=== PATIENT | male | born 1985 | race Caucasian/White ===

== ENCOUNTER 2024-05-11 17:42 | Inpatient (IN) | payer OTHER, SELFPAY ==
[2024-05-11] VITALS (11 sets, daily range): BP systolic 116–146; BP diastolic 82–105; BMI 19.9
--- NOTE | 2024-05-11 13:36 | CON.NEURO ---
Consultation
Order
Date of Consultation: 05/11/24
Requesting Provider: HUEY Perez
Reason for Consult: GBS
Neurology Consultation Note.
HPI: This is a 38-year-old RH man who presented to [facility] on 05/11/2024 with motor deficits. According to the patient he found himself on the floor dressed covered in vomit on 04/11/2024 at 2 am.
He recalls inability to move his legs s the left leg tingling. He called his mother on his cell phone that likely was with him to be assisted to bed. His mother noted new rash on his upper nose bridge that started red and spread to his forehead.
The patient does not recall having pizza that his mom witnessed him to have that the evening. The patient expressed fear of medical facilities, which delayed seeking care. On Saturday, while typing, his watch alerted him to a heart rate of 160 beats
per minute. His left leg improved to about 80%, but his right leg showed no improvement, with an inability to move his toes requiring a cane for ambulation. He took 32 mg of prednisone prescribed by his father on Saturday and Saturday however due to
no improvement of his right leg weakness he sought medical care.
No reports of headaches, associated tongue injury, urinary incontinence fever history of seizures.
The patient also reports developing swallowing issues with solids and hoarseness. He reportedly had a Hepatitis A and Prevnar vaccine on April 21.
ER VS: 129/94, 107, afebrile.
EKG: NSR, QTc Int : 416 ms
PDMP: Clonazepam 2 Mg�60 tablets filled in on 04/04/2024, 03/07/2024, Alprazolam 2 mg 90 tablets filled in on 04/04/2024, 03/07/2024, Lunesta 30 tabs filled in on 04/06/2024. 03/08/2024
Labs: WBCs�14.9, absolute lymphocyte count�0.9, glucose�124, calcium�10.4, normal sodium
PMH: HTN, vit B12, D deficiency, PTSD, SOCRATES, insomnia
PSH:chin implant, rhinoplasty
SH: lives with a partner; has 2 children ages 2 and 5; nonsmoker; no history of excessive ETOh use, former
FH: Not contributory
All: sulfas
ROS: Constitutional: Negative. Negative for chills, fever and unexpected weight change.
HENT: Positive for intermittent dysphagia to solid
Eyes: Negative. Negative for photophobia, pain and visual disturbance.
Respiratory: Negative for cough, choking and shortness of breath.
Cardiovascular: Negative for chest pain, palpitations and leg swelling.
Gastrointestinal: Negative for abdominal pain and vomiting.
Endocrine: Negative. Negative for cold intolerance.
Genitourinary: Negative for dysuria, flank pain and urgency.
Musculoskeletal: Negative for neck or back pain.
Skin: Positive for rash
Allergic/Immunologic: Negative. Negative for immunocompromised state.
Neurological: Positive for leg weakness and paresthesias
General: Well developed. In no acute distress.
Cardio: Regular rate and rhythm without murmur. Extremities are without cyanosis or edema.
Neuro:
Mental Status: Alert, oriented to person, place, and date. Normal attention and recall. Good fund of knowledge. Follows complex requests across the midline. Comprehension, naming, and repetition intact.
Cranial Nerves: Pupils are equally round and reactive to light. EOMs full. Visual barillas full to confrontation. No ptosis. No nystagmus. V1-V3 intact to light touch and pinprick bilaterally, symmetric. Face symmetric. Normal hearing AU. The
palate elevated well. SCMs and traps 5/5. Tongue midline. No dysarthria.
Motor: Normal bulk and tone. No pronator or arm drift. Strength 5/5 throughout except for right hip flexion�5-5, knee extension�4/5, right dorsiflexion�0/5, left dorsiflexion�4 out of 5. No clonus.
Reflexes: 2+ throughout the upper extremities and knees. 0/2 in AJs. Plantar responses flexor bilaterally. Negative Larry's bilaterally
Sensory: Absent vibration at the right toe, preserved proprioception bilateral at the toes
Coordination: No dysmetria or tremor.
Gait: deferred
Assessment and Plan:
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 I recommend:
II. SOCRATES
III. PTSD
-Admit to ICU given the autonomic dysfunction
-NIF Q1-2 H
-Start IVIG 0.4 g/kg/day for 5 days. Side effects include aseptic meningitis, rash, acute renal failure (mostly related to sucrose containing products), and hyperviscosity leading to stroke
-CSF(OP/CP, cell count, protein, glucose, GIOVANY)
-PVR
-MRI C/T spine with socrates
-GIOVANY, Lyme ab, HIV, HSV, VZV, vit B1, copper, ESR/CRP; spot urine for porphyria, JOSE, heavy metal screen
-Continue home dose of clonazepam, Lunesta, alprazolam
-NCS//EMG in 3 weeks
-Routine EEG
-DVT prophylaxis.
Case was discussed with patient's mother present at bedside.
I personally reviewed all radiology and labs along with past medical records pertinent to current medical problems. Total time spent in patient care is 60 minutes.
Thank you for allowing us to participate in the care of this patient. We will continue to follow. Please do not hesitate to contact us with any questions or concerns.
Subjective/Objective
Subjective Data
Date of Service: May 11, 2024
Objective Data
Vital Signs
Temp Pulse Resp BP Pulse Ox
37.0 C 107 16 129/94 98
05/11/24 11:54 05/11/24 11:54 05/11/24 11:54 05/11/24 11:54 05/11/24 13:15
Patient Allergies
Sulfa (Sulfonamide Antibiotics) Allergy (Mild, Verified 05/11/24 11:54)
Rash
Vital Signs and Labs
-
Vital Signs and Labs:
Vital Signs
Temp Pulse Resp BP Pulse Ox
37.0 C 90 14 129/89 97
05/11/24 11:54 05/11/24 15:15 05/11/24 15:15 05/11/24 15:00 05/11/24 14:15
Lab Results
05/11/24 13:23
05/11/24 13:23
Sodium 138 mmol/L (135-145) 05/11/24 13:23
Potassium 4.3 mmol/L (3.5-5.1) 05/11/24 13:23
BUN 24 mg/dl (9-20) H 05/11/24 13:23
Glucose 124 mg/dl (70-99) H 05/11/24 13:23
Calcium 10.4 mg/dl (8.4-10.2) H 05/11/24 13:23
Home Medications
-
Home Medications
alprazolam 2 mg tablet 6 mg PO HS 05/11/24
clonazepam 2 mg tablet 4 mg PO QPM 05/11/24
cyanocobalamin (vitamin B-12) 1,000 mcg/mL injection solution 1,000 mcg IM MONTHLY 05/11/24
dutasteride 0.5 mg capsule 0.5 mg PO DAILY 05/11/24
ergocalciferol (vitamin D2) 1,250 mcg (50,000 unit) capsule 2,500 mcg PO WEEKLY 05/11/24
eszopiclone 1 mg tablet 1 mg PO HSPRN PRN insomnia 05/11/24
finasteride 1 mg tablet (Propecia) 1 mg PO DAILY 05/11/24
gabapentin 600 mg tablet 600 mg PO TID 05/11/24
hydrochlorothiazide 12.5 mg capsule 12.5 mg PO QPM 05/11/24
methylprednisolone 32 mg tablet 32 mg PO .TAPER weakness, rash 05/11/24
minoxidil 2.5 mg tablet 2.5 mg PO QPM heart condition 05/11/24
[2024-05-11 13:41] LABS: % Basophils 0.1 % (0-2); % Immature Granulocytes 0.5 % (0-0.5); % Lymphocytes 5.7 % (20.5-51.1); % Monocytes 6.4 % (1.7-9.3); % Neutrophils 87.3 % (42.2-75.2); Absolute Immature Granulocytes 0.1 10^3/uL (0-0.05); Absolute Lymphocytes 0.9 10^3/uL (1.2-3.4); Hematocrit 35.8 % (39.0-52.0); Hemoglobin 12.2 g/dL (13.0-18.0); Mean Corp Hgb Conc. 34.1 g/dL (33.0-37.0); Mean Platelet Volume 8.5 fL (7.4-10.4); Nucleated Red Blood Cells % 0 % (-); Platelet Count 331 10^3/uL (130-400); Red Blood Cell Count 4.07 10^6/uL (4.70-6.10); Red Cell Dist. Width 12.6 % (11.5-14.5); White Blood Cell Count 14.9 10^3/uL (4.8-10.8)
[2024-05-11 13:53] LABS: ALT (SGPT) 21 U/L (0-50); AST (SGOT) 39 U/L (17-59); Albumin 4.5 g/dl (3.5-5.0); Alkaline Phosphatase 59 U/L (38-126); Blood Urea Nitrogen 24 mg/dl (9-20); Calcium 10.4 mg/dl (8.4-10.2); Carbon Dioxide 27 mmol/L (22-30); Chloride 101 mmol/L (98-107); Estimated Creatinine Clearance > 125 ml/min; Glucose 124 mg/dl (70-99); Potassium 4.3 mmol/L (3.5-5.1); Sodium 138 mmol/L (135-145); Total Bilirubin 0.5 mg/dl (0.2-1.3); Total Protein 7.4 g/dl (6.3-8.2); eGFR > 60.00
--- NOTE | 2024-05-11 14:59 | ED.GENMED ---
History of Present Illness
General
Chief Complaint: Weakness
Source: patient
Exam Limitations: none
Time Seen by Provider: 05/11/24 12:20
History of Present Illness
History of Present Illness:
38-year-old male with history of anxiety and hypertension presents with main complaint of weakness and paralysis to the right lower leg. 3 days ago, he received influenza vaccine. That evening he finished eating dinner and had what sounds like a
syncopal episode. He woke up on the floor covered in vomit. He also realized his legs were not functioning. He had to crawl to the to ambulate. Since then the function in his left leg has returned but he still notes weakness and numbness to the
right lower leg. He also notes numbness to both small fingers. No headache. No chest pain. No shortness of breath. No other at this time
Phy Exam
Physical Exam
Physical Exam:
General: Well-appearing male no acute respiratory distress
HEENT: Normocephalic atraumatic neck is supple tongue and uvula midline no trismus or drooling
Heart: Regular rate and rhythm no murmurs
Lungs: Clear no wheeze
Ext: No cyanosis
Neuro: alert and oriented. No facial asymmetry. Weakness noted to right lower extremity distal to the knee unable to dorsiflex or plantarflex the right foot. Bilateral patellar reflexes are 2+. Bilateral Achilles reflexes are diminished. He has
slightly decreased sensation to the right foot compared to the left no drift on exam
Vascular: 2+ dorsalis pedis pulse bilateral feet
Course
Orders/Labs/Results
Orders:
Orders
05/11/24 13:23
Complete Blood Count/With Diff Urgent
Comprehensive Metabolic Panel Urgent
05/11/24 14:03
NEUROLOGY CONSULT Urgent
Consulting Provider: Dana Acosta
Was physician already notified: Yes
05/11/24 15:19
Electrocardiogram (*1) Urgent
Reason for Study: Syncope
EKG- Treatment ONCE
Abnormal Lab Results
05/11/24
13:23
WBC 14.9 H 10^3/uL
(4.8-10.8)
RBC 4.07 L 10^6/uL
(4.70-6.10)
Hgb 12.2 L g/dL
(13.0-18.0)
Hct 35.8 L %
(39.0-52.0)
Abs Immat Gran (auto) 0.1 H 10^3/uL
(0-0.05)
Absolute Neuts (auto) 13.0 H 10^3/uL
(1.4-6.5)
Absolute Lymphs (auto) 0.9 L 10^3/uL
(1.2-3.4)
Absolute Monos (auto) 1.0 H 10^3/uL
(0.1-0.6)
Neutrophils % 87.3 H %
(42.2-75.2)
Lymphocytes % 5.7 L %
(20.5-51.1)
BUN 24 H mg/dl
(9-20)
Glucose 124 H mg/dl
(70-99)
Calcium 10.4 H mg/dl
(8.4-10.2)
05/11/24 13:23
05/11/24 13:23
Vital Signs
Initial and Last Documented VS:
Initial Vital Signs
Temp Pulse Resp BP Pulse Ox
98.6 F 107 16 129/94 98
05/11/24 11:54 05/11/24 11:54 05/11/24 11:54 05/11/24 11:54 05/11/24 11:54
Last Documented Vital Signs
Temp Pulse Resp BP Pulse Ox
98.6 F 90 14 129/89 97
05/11/24 11:54 05/11/24 15:15 05/11/24 15:15 05/11/24 15:00 05/11/24 14:15
MDM/Problems Addressed
Differential Diagnosis Includes:
Patient presents with concern for weakness to the lower extremities right greater than left shortly following influenza vaccine. Differential could include adverse reaction to vaccine versus Guillain-Corral� versus foot drop
Labs ordered. Consulted neurology
*Critical Care Note
Total Time (30-74mins, 75-104mins- exclusive of procedures): Not Applicable
Update Note
Update Note:
Neurology saw patient. Agrees patient needs to be admitted for potential Guillain-Corral� syndrome. Neurology to place orders for treatment and further studies. Hospitalist made aware.
ED Attending Note
-
Portions of this chart may have been created with voice recognition software.� Occasional wrong word or��sound alike� substitutions may have occurred due to the inherent limitations of voice recognition software.
Discharge Plan
Departure
Patient Disposition: Admit
Date of Disposition: 05/11/24
Time of Disposition: 15:21
Presentation/result/management discussed w/ accepting MD/DO: Hospitalist
Discharge Problem:
Paralysis of right lower extremity
Prescriptions:
No Action
gabapentin 600 mg tablet
600 mg PO TID
methylprednisolone 32 mg Tablet
32 mg PO .TAPER
minoxidil 2.5 mg tablet
2.5 mg PO QPM
cyanocobalamin (vitamin B-12) 1,000 mcg/mL solution
1,000 mcg IM MONTHLY
clonazepam 2 mg tablet
4 mg PO QPM
Patient Comments:
05/11/24: per patient, takes full daily dose in the evening
hydrochlorothiazide 12.5 mg capsule
12.5 mg PO QPM
alprazolam 2 mg tablet
6 mg PO HS
Patient Comments:
05/11/24: per patient, takes full daily dose at bedtime
ergocalciferol (vitamin D2) 1,250 mcg (50,000 unit) capsule
2,500 mcg PO WEEKLY
finasteride [Propecia] 1 mg tablet
1 mg PO DAILY
dutasteride 0.5 mg capsule
0.5 mg PO DAILY
eszopiclone 1 mg tablet
1 mg PO HSPRN PRN (Reason: insomnia)
Referrals:
Alayna Garcia MD [Family Provider] -
Interventions
Interventions:
*Risk Screen - Suicide Last Done: 05/11/24 11:54
*General Assessment Last Done: 05/11/24 13:15
*Neglect/Abuse Screening Last Done: 05/11/24 11:54
*ED COVID-19 Vaccine History Last Done: 05/11/24 13:15
ED- Cardiac Assessment Last Done: 05/11/24 13:15
ED- Neurological Assessment Last Done: 05/11/24 13:15
ED- Pulmonary Assessment Last Done: 05/11/24 13:15
Discharge Date and Time
Print Language: YAKUT
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
[2024-05-11 16:59] LABS: INR 1.06; PT 14.1 Sec (11.4-14.6)
[2024-05-11] MEDS: NSS 1000 IV (17:36)
[2024-05-11 17:40] LABS: Erythrocyte Sed Rate 27 mm/hour (0-20)
[2024-05-11 17:53] LABS: Vitamin B12 591 pg/ml (239-931)
[2024-05-11 18:06] LABS: Free T4 0.82 ng/dl (0.78-2.19)
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
[2024-05-11 18:28] LABS: Hepatitis B Surface Antigen Negative (Negative)
[2024-05-11 18:45] LABS: Hepatitis C Antibody Negative (Negative)
[2024-05-11 19:41] LABS: Hepatitis B Surface Antibody Positive
[2024-05-11 20:30] LABS: Hepatitis B Core Ab, IgM Negative (Negative)
--- NOTE | 2024-05-11 22:10 | PTCARENOTE ---
rec`d pt at 2210 from ED AAOx3. complains of rt lower leg-'can`t feel it.' can wiggle his toes. +pulses. left leg is normal. arms are normal. RA. POX 94%. SR on monitor. urinal. rt and left AC 20s flushed and patent. call montalvo in reach, safe
environment maintained.
[2024-05-11 22:38] LABS: Magnesium 2.3 mg/dl (1.6-2.3); Phosphorus 3.1 mg/dl (2.5-4.5)
[2024-05-11] MEDS: HEPARIN 5000 UNITS SC (23:09)
[2024-05-11] MEDS: NEURONTIN 600 MG PO (23:10)
[2024-05-11] MEDS: ORETIC 12.5 MG PO (23:10)
[2024-05-11] MEDS: XANAX 6 MG PO (23:29)
[2024-05-12] VITALS (24 sets, daily range): BP systolic 76–155; BP diastolic 62–107; PULSE 93; O2SAT 95; BMI 19.5
[2024-05-12] MEDS: TYLENOL 650 MG PO (00:24)
[2024-05-12] MEDS: BENADRYL 25 MG IV (00:24)
[2024-05-12] MEDS: GAMMAGARD 300 IV (00:25)
[2024-05-12] MEDS: PEPCID 20 MG PO ×2 (00:47→20:59)
[2024-05-12 03:44] LABS: % Basophils 0.4 % (0-2); % Immature Granulocytes 0.6 % (0-0.5); % Lymphocytes 17.8 % (20.5-51.1); % Monocytes 2.7 % (1.7-9.3); % Neutrophils 77.5 % (42.2-75.2); Absolute Eosinophils 0.1 10^3/uL (0-0.7); Absolute Immature Granulocytes 0.1 10^3/uL (0-0.05); Absolute Monocytes 0.3 10^3/uL (0.1-0.6); Absolute Neutrophils 8.8 10^3/uL (1.4-6.5); Hematocrit 32.2 % (39.0-52.0); Hemoglobin 11.2 g/dL (13.0-18.0); Mean Corp Hgb Conc. 34.8 g/dL (33.0-37.0); Mean Corpuscular Hgb 30.1 pg (27.0-31.0); Mean Corpuscular Volume 86.6 fL (80.0-94.0); Mean Platelet Volume 8.6 fL (7.4-10.4); Nucleated Red Blood Cells % 0 % (-); Platelet Count 299 10^3/uL (130-400); Red Blood Cell Count 3.72 10^6/uL (4.70-6.10); Red Cell Dist. Width 12.5 % (11.5-14.5); White Blood Cell Count 11.4 10^3/uL (4.8-10.8)
[2024-05-12 04:29] LABS: ALT (SGPT) 22 U/L (0-50); AST (SGOT) 38 U/L (17-59); Albumin 3.8 g/dl (3.5-5.0); Alkaline Phosphatase 52 U/L (38-126); Blood Urea Nitrogen 25 mg/dl (9-20); Calcium 9.5 mg/dl (8.4-10.2); Carbon Dioxide 25 mmol/L (22-30); Chloride 104 mmol/L (98-107); Estimated Creatinine Clearance > 125 ml/min; Glucose 121 mg/dl (70-99); Potassium 4.3 mmol/L (3.5-5.1); Sodium 139 mmol/L (135-145); Total Bilirubin 0.5 mg/dl (0.2-1.3); Total Protein 6.7 g/dl (6.3-8.2); eGFR > 60.00
[2024-05-12 04:36] LABS: APTT 27.7 Sec (23.4-35.0)
--- NOTE | 2024-05-12 05:09 | PTCARENOTE ---
pt admits to taking his mom`s prescribed promethazine 'every once in awhile'. admits to taking it before his at home syncopal episode on Saturday.
--- NOTE | 2024-05-12 07:08 | W.PN.HOSP.TC ---
Today's Communication/Plan
-
Consult psych
MRI lumbar with and without contrast
Awaiting lab results
Assessment / Plan
Assessment / Plan
MRI brain: On sagittal T1-weighted images, 4 mm rounded prominence of increased T1-weighted signal in the region of the infundibulum with loss of degenerative visualization of the posterior pituitary gland within the sella. This could represent
ectopic posterior pituitary gland, versus slight prominence of the infundibulum as normal variation. As warranted, consider further evaluation with additional thin section imaging through the pituitary gland. No other significant MR finding within
the brain.
MRI T-spine: Within the visualized lungs, patchy areas of parenchymal opacity/signal bilaterally, there appears to be greater involvement of the right lung when compared to the left. Findings raise suspicion for pneumonia, although chronic
parenchymal disease is also possible. Consider further evaluation with chest radiograph initially. Normal morphology and signal intensity of the cervical and thoracic spinal cord. Conus medullaris appears within normal limits. No evidence for
abnormal enhancement of the spinal cord. No evidence for abnormal enhancement of the visualized nerve roots within the superior aspect of the cauda equina.
#B/L LE weakness, R>L:
-concern for GBS
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 Function returned to left side, has had persistent weakness to RLE (has been using cane)
-took prednisone 32mg(from father)
-recent vaccination history noted in H&P, reportedly he received Prevnar and COVID-vaccine in April 2024 and flu vaccine 3 days prior to coming to the
-MRI brain and T-spine above, unremarkable for acute neurological findings
-MRI C-spine pending
-ESR 27, CRP 146
-neuro following
-cont IVIG x 5 days
-IR c/s placed for LP (routine fluid studies as well as GIOVANY)
-check EEG
-check serum GIOVANY, Lyme ab, HIV, HSV, VZV, Vit B1, copper, ESR/CRP; spot urine for porphyria, JOSE, heavy metal screen
-NCS/EMG in 3 weeks
-MRI lumbar with and without contrast
-Transferred down to IMU
# leukocytosis
-Trending down
# Rash on face; unclear
-Consult dermatology
#Essential hypertension
-Cont HCTZ/minoxidil
#PTSD/Anxiety
-cont home Xanax/Klonopin. c/s psych.
#BPH
-cont Proscar
#B12 deficiency
-B12 normal
Full code
DVT ppx: heparin
Anticipated Discharge: Within 24 hours
Subjective/Interval History
-
Date of Service: May 12, 2024
AFVSS. States he is hungry
Objective Data
-
Labs:
Laboratory Results
05/12/24 05/12/24 05/12/24
03:19 04:07 06:00
WBC 11.4 H
Hgb 11.2 L
Hct 32.2 L
Plt Count 299
APTT Cancelled 27.7
Sodium 139 Cancelled
Potassium 4.3 Cancelled
Chloride 104 Cancelled
Carbon Dioxide 25 Cancelled
BUN 25 H Cancelled
Creatinine 0.8 Cancelled
Glucose 121 H Cancelled
Calcium 9.5 Cancelled
Total Bilirubin 0.5 Cancelled
AST 38 Cancelled
ALT 22 Cancelled
Alkaline Phosphatase 52 Cancelled
Vital Signs:
Vital Signs
Temp Pulse Resp BP Pulse Ox
97.5 F 80 12 112/87 100
05/12/24 02:00 05/12/24 06:30 05/12/24 06:30 05/12/24 06:00 05/12/24 06:30
I&O
05/11/24 05/12/24 05/13/24
06:59 06:59 06:59
Intake Total 607.8 / 607.8
Balance 607.8 / 607.8
Review of Systems
-
History Source: Patient
Constitutional: Reports Weight Loss
EENT: Reports No Symptoms Reported
Respiratory: Reports No Symptoms
Cardiac: Reports No Symptoms
Abdomen/GI: Reports No Symptoms
Musculoskeletal: Reports Muscle Weakness
Neuro: Reports Weakness
Physical Exam
-
General: Well Nourished and No Apparent Distress
HEENT: Normocephalic and Atraumatic
Respiratory: Clear to Auscultation
Cardiac: Regular Rhythm
GI: Soft, Nontender and Nondistended
Skin: Warm, Dry and Rash (Light brown nonitchy flat near the right eyebrow lower forehead)
Neuro: Awake, Alert, Oriented and Other (right dorsiflexion-4/5, left dorsiflexion-4 /5, right planter flexion 0/5, left planter flexion 5/5, decreased sensation to light touch in right lower lateral leg)
Psych: Calm
Data Reviewed
-
Diagnostic Radiology: Report Reviewed by me
MRI: Report Reviewed by me
Labs: Labs Reviewed by me, Discussed with Physician and Discussed with Patient
[2024-05-12] MEDS: NSS IV (07:47)
[2024-05-12] MEDS: HEPARIN 5000 UNITS SC ×2 (08:11→21:09)
[2024-05-12] MEDS: NEURONTIN PO ×3 (08:11→17:27)
--- NOTE | 2024-05-12 09:14 | PTCARENOTE ---
Received pt awake and alert.Speech is appropriate.+PABON.pt c/o numbness and weakness of right lower extremity.Pt assisted to bathroom with 1 person minimal assist.Pt using a single point cane to ambulate.After voiding pt noted to lift right leg/bend
to flush the toilet using his foot.Denies pain.SR noted.IVF infusing.Lungs CTA.IS 1750 ml.Occasional non productive cough.POX 97% on RA.No SOB or use of accessories noted.Pt requesting Red Bull for the caffeine.No BM.Voided large amount yellow
urine.Plan of care discussed with pt.
[2024-05-12] MEDS: NSS 1000 IV ×2 (09:30→21:39)
--- NOTE | 2024-05-12 09:33 | W.PN.NEURO.1 ---
Today's Communication / Plan
-
.
Subjective/Objective
Subjective Data
Date of Service: May 12, 2024
Neurology Follow up Note.
24h events: hemodynamically stable, afebrile. LP-pending.
Mr. Somers endorses intermittent dyspnea at rest. No dysarthria, diplopia. He admits to improvement of the right leg numbness since yesterday however distal right leg weakness persists. No reports of radicular back pain, change in sensation or
strength in the arms.
Mr. Somers reports 15 pounds of unintentional weight loss in the last 2 weeks that believes is secondary to poor appetite. He is on gabapentin as a part of depression management
T spine MRI w/wo karolyn(05/11/2024) no evidence of spinal cord abnormalities, patchy areas of pulmonary parenchymal opacity/signal bilaterally, there appears to be greater involvement of the right lung when compared to the left.
Brain MRI w/wo karolyn(05/11/2024) ectopic posterior pituitary gland vs prominence of the infundibulum as normal variant.
Labs: CRP�146.80.
PMH: HTN, vit B12, D deficiency, PTSD, KAROLYN, insomnia
PSH: chin implant, rhinoplasty
SH: lives with a partner; has 2 adopted children ages 2 and 5; nonsmoker; no history of excessive ETOh use, former
FH: Not contributory
All: sulfas
ROS: Constitutional: Negative. Negative for chills, fever and unexpected weight change.
HENT: Positive for intermittent dysphagia to solid
Eyes: Negative. Negative for photophobia, pain and visual disturbance.
Respiratory: Negative for cough, choking and shortness of breath.
Cardiovascular: Negative for chest pain, palpitations and leg swelling.
Gastrointestinal: Negative for abdominal pain and vomiting.
Endocrine: Negative. Negative for cold intolerance.
Genitourinary: Negative for dysuria, flank pain and urgency.
Musculoskeletal: Negative for neck or back pain.
Skin: Positive for rash
Allergic/Immunologic: Negative. Negative for immunocompromised state.
Neurological: Positive for leg weakness and paresthesias
General: Well developed. In no acute distress.
Cardio: Regular rate and rhythm without murmur. Extremities are without cyanosis or edema.
Neuro:
Mental Status: Alert, oriented to person, place, and date. Normal attention and recall. Good fund of knowledge. Follows complex requests across the midline. Comprehension, naming, and repetition intact.
Cranial Nerves: Pupils are equally round and reactive to light. EOMs full. Visual barillas full to confrontation. No ptosis. No nystagmus. V1-V3 intact to light touch and pinprick bilaterally, symmetric. Face symmetric. Normal hearing AU. The
palate elevated well. SCMs and traps 5/5. Tongue midline. No dysarthria.
Motor: Normal bulk and tone. No pronator or arm drift. Strength 5/5 throughout except for right hip flexion�5-/5, knee extension�4/5, right dorsiflexion�0/5, right plantarflexion�4 out of 5, right foot eversion and inversion�2 out of 5 left
dorsiflexion 5/0 out of 5. No clonus.
Reflexes: 2+ throughout the upper extremities and knees. 0/2 in AJs. Plantar responses flexor bilaterally. Negative Larry's bilaterally
Sensory: Reduced light touch in the right L2�S1 distribution.
Coordination: No dysmetria or tremor.
Gait: deferred
Assessment and Plan:
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
II. Elevated CRP
III. Syncope versus seizure
IV. Status post unwitnessed fall
V. Rash
-Continue telemetry
-NIF Q1-2 H
-Continue IVIG 0.4 g/kg/day for 5 days.
-LP with sedation
-PVR
-MRI C/LS spine with karolyn
-Will follow-up requested serological and CSF studies
-Continue home dose of clonazepam, Lunesta, alprazolam, gabapentin
-Skin biopsy
-NCS//EMG in 3 weeks
-Routine EEG
-DVT prophylaxis.
I personally reviewed all radiology and labs along with past medical records pertinent to current medical problems. Total time spent in patient care is 40 minutes.
Thank you for allowing us to participate in the care of this patient. We will continue to follow. Please do not hesitate to contact us with any questions or concerns.
Objective Data
Vital Signs
Temp Pulse Resp BP Pulse Ox
36.8 C 85 9 130/102 97
05/12/24 08:00 05/12/24 09:04 05/12/24 08:45 05/12/24 08:00 05/12/24 09:13
Lab Results
05/12/24 03:19
05/12/24 06:00
PT 14.1 Sec (11.4-14.6) 05/11/24 16:29
INR 1.06 05/11/24 16:29
APTT 27.7 Sec (23.4-35.0) 05/12/24 04:07
Sodium Cancelled 05/12/24 06:00
Potassium Cancelled 05/12/24 06:00
BUN Cancelled 05/12/24 06:00
Glucose Cancelled 05/12/24 06:00
Calcium Cancelled 05/12/24 06:00
Phosphorus 3.1 mg/dl (2.5-4.5) 05/11/24 13:23
Vitamin B12 591 pg/ml (239-931) 05/11/24 16:29
Patient Allergies
Sulfa (Sulfonamide Antibiotics) Allergy (Mild, Verified 05/11/24 11:54)
Rash
Vital Signs and Labs
-
Vital Signs and Labs:
Vital Signs
Temp Pulse Resp BP Pulse Ox
36.8 C 85 9 130/102 97
05/12/24 08:00 05/12/24 09:04 05/12/24 08:45 05/12/24 08:00 05/12/24 09:13
Lab Results
05/12/24 03:19
05/12/24 06:00
PT 14.1 Sec (11.4-14.6) 05/11/24 16:29
INR 1.06 05/11/24 16:29
APTT 27.7 Sec (23.4-35.0) 05/12/24 04:07
Sodium Cancelled 05/12/24 06:00
Potassium Cancelled 05/12/24 06:00
BUN Cancelled 05/12/24 06:00
Glucose Cancelled 05/12/24 06:00
Calcium Cancelled 05/12/24 06:00
Phosphorus 3.1 mg/dl (2.5-4.5) 05/11/24 13:23
Vitamin B12 591 pg/ml (954-931) 05/11/24 16:29
Medications
-
Medications:
Generic Name Dose Route Start Last Admin
Trade Name Freq PRN Reason Stop Dose Admin
Acetaminophen 650 mg 05/11/24 22:03
Acetaminophen 325 Mg Tablet PO 06/08/24 22:02
Q4HPRN PRN
mild pain/VILLAGRAN/temp> 100.4F
Acetaminophen 650 mg 05/12/24 00:00 05/12/24 00:24
Acetaminophen 325 Mg Tablet PO 05/16/24 00:01 650 mg
DAILY@0000 JANET Administration
Alprazolam 6 mg 05/11/24 23:00 05/11/24 23:29
Alprazolam 1 Mg Tablet PO 06/08/24 22:59 6 mg
HS JANET Administration
Clonazepam 4 mg 05/12/24 18:00
Clonazepam 1 Mg Tablet PO 06/09/24 17:59
QPM JANET
Diphenhydramine HCl 25 mg 05/12/24 00:00 05/12/24 00:24
Diphenhydramine 50 Mg/Ml 1 Ml Vial IV 05/16/24 00:01 25 mg
DAILY@0000 JANET Administration
Gabapentin 600 mg 05/11/24 23:00 05/11/24 23:10
Gabapentin 300 Mg Capsule PO 06/08/24 22:59 600 mg
TID JANET Administration
Heparin Sodium 5,000 units 05/11/24 22:03 05/12/24 08:11
Heparin 5,000 Units/Ml 1 Ml Vial SC 06/08/24 22:02 5,000 units
Q12 JANET Administration
Hydrochlorothiazide 12.5 mg 05/11/24 22:15 05/11/24 23:10
Hydrochlorothiazide 12.5 Mg Tablet PO 06/08/24 22:14 12.5 mg
QPM JANET Administration
Sodium Chloride 1,000 mls @ 100 mls/hr 05/11/24 16:15 05/12/24 09:30
Nss IV 1,000 mls
.Q10H JANET Administration
Immune Globulin 30 grams in 300 mls @ 0 mls/hr 05/12/24 00:00 05/12/24 00:25
Gammagard IV 05/16/24 00:01 300 mls
DAILY@0000 JANET Administration
Protocol
Per Protocol
Minoxidil 2.5 mg 05/11/24 22:03 05/11/24 23:16
Minoxidil 2.5 Mg Tablet PO 06/08/24 22:02 Not Given
QPM JANET
Finasteride [ 0 mg 05/12/24 08:00
Propecia] 1 Mg PO 06/09/24 07:59
Tablet; 1 Tab Po DAILY JANET
Daily
Sodium Chloride 0 flush 05/11/24 22:00
Sodium Chloride 0.9% (Flush) Syringe IV 06/08/24 21:59
PER PROTOCOL JANET
Zolpidem Tartrate 5 mg 05/11/24 22:13
Zolpidem Tartrate 5 Mg Tablet PO 06/08/24 22:12
HSPRN PRN
insomnia
Home Medications
-
Home Medications
alprazolam 2 mg tablet 6 mg PO HS 05/11/24
clonazepam 2 mg tablet 4 mg PO QPM 05/11/24
cyanocobalamin (vitamin B-12) 1,000 mcg/mL injection solution 1,000 mcg IM MONTHLY 05/11/24
dutasteride 0.5 mg capsule 0.5 mg PO DAILY 05/11/24
ergocalciferol (vitamin D2) 1,250 mcg (50,000 unit) capsule 2,500 mcg PO WEEKLY 05/11/24
eszopiclone 1 mg tablet 1 mg PO HSPRN PRN insomnia 05/11/24
finasteride 1 mg tablet (Propecia) 1 mg PO DAILY 05/11/24
gabapentin 600 mg tablet 600 mg PO TID 05/11/24
hydrochlorothiazide 12.5 mg capsule 12.5 mg PO QPM 05/11/24
methylprednisolone 32 mg tablet 32 mg PO .TAPER weakness, rash 05/11/24
minoxidil 2.5 mg tablet 2.5 mg PO QPM 05/11/24
--- NOTE | 2024-05-12 09:38 | W.PN.UPDATE ---
Update Note
Progress Note Update
I saw and evaluated the patient. I reviewed the resident�s note and agree with findings and plan as documented in the resident�s note.
No new complaints.
Gen: NAD, AAOx3.
Eyes: EOMI, PERRLA, no scleral icterus.
Neck: supple.
CV: RRR, +S1/S2, no m/r/g.
Resp: CTAB, no rales, wheezes, or rhonchi.
Abd: +BS, soft, NT, ND
Skin: No rashes.
Neuro: CN 2-12 intact, RLE 2/, LLE 4/5
Psych: Normal mood and affect.
MRI brain: On sagittal T1-weighted images, 4 mm rounded prominence of increased T1-weighted signal in the region of the infundibulum with loss of degenerative visualization of the posterior pituitary gland within the sella. This could represent
ectopic posterior pituitary gland, versus slight prominence of the infundibulum as normal variation. As warranted, consider further evaluation with additional thin section imaging through the pituitary gland. No other significant MR finding within
the brain.
MRI T-spine: Within the visualized lungs, patchy areas of parenchymal opacity/signal bilaterally, there appears to be greater involvement of the right lung when compared to the left. Findings raise suspicion for pneumonia, although chronic
parenchymal disease is also possible. Consider further evaluation with chest radiograph initially. Normal morphology and signal intensity of the cervical and thoracic spinal cord. Conus medullaris appears within normal limits. No evidence for
abnormal enhancement of the spinal cord. No evidence for abnormal enhancement of the visualized nerve roots within the superior aspect of the cauda equina.
B/L LE weakness, R>L:
-concern for GBS
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 Function returned to left side, has had persistent weakness to RLE (has been using cane)
-took prednisone 32mg
-recent vaccination history noted in H&P, most recent vaccines 04/21/24
-MRI brain and T-spine above, unremarkable for acute neurological findings
-MRI C-spine pending
-ESR 27, CRP 146
-neuro following
-cont IVIG x 5 days
-IR c/s placed for LP (routine fluid studies as well as GIOVANY)
-check EEG
-check serum GIOVANY, Lyme ab, HIV, HSV, VZV, Vit B1, copper, ESR/CRP; spot urine for porphyria, JOSE, heavy metal screen
-NCS/EMG in 3 weeks
Other problems:
Essential HTN: cont HCTZ/minoxidil
PTSD/Anxiety: cont home Xanax/Klonopin. c/s psych.
BPH: cont Proscar
B12 deficiency: B12 normal
FULL/heparin
Total time spent on today's encounter was 50 minutes which included time spent in counseling the patient/family regarding diagnosis and treatment plan as listed above, goals of care, and symptom management. Case was discussed with nursing staff,
specialists, and care coordinators/case management. All labs and imaging personally reviewed by me. Remainder the time spent in detailed review of previous records, lab data, imaging, and other medical provider documentation.
--- NOTE | 2024-05-12 12:11 | PTCARENOTE ---
Addendum entered by Vanesa Díaz RN 05/12/24 12:13:
Pt has refused morning dose of Neurontin and Propecia dose at this time.
Original Note:
Pt assessed.No change in assessment noted.Pt noted to be standing at bedside independently.Pt's mother at bedside.
--- NOTE | 2024-05-12 12:48 | PTCARENOTE ---
Pt made aware that he is NPO for LP with sedation as per SUNITA GARCIA.
--- NOTE | 2024-05-12 14:22 | CM ---
CM following re: discharge planning.
Reviewed pt's chart, met with pt and pt's mother at bedside.
Pt is a 38 year old male, admitted with primary dx of B/L LE weakness, concern for GBS.
Pt reports he lives with mother 2SH, 2 steps to enter, has a sister in [place] and brother in [place]. Pt reports he ambulates with a cane.
PT and OT will evaluate the pt to determine a level of care at discharge.
PCP: Alayna Garcia
Pharmacy: [facility].
D/C plan: most likely home with anticipated no needs vs outpatient therapy if recommended by PT/OT
CM will follow with discharge plan updates as hospitalization progresses
[2024-05-12 14:27] LABS: Syphilis/T. pallidum Ab Reflex Negative (Negative)
--- NOTE | 2024-05-12 14:56 | PTCARENOTE ---
Pt stated that he accidentally drank a 1/2 bottle of Red Bull despite being told he was NPO.IRKIMO RN made aware.LP on hold until tomorrow as JIMENEZ RN will make JIMENEZ GARCIA aware.
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
--- NOTE | 2024-05-12 15:21 | PTCARENOTE ---
Pt transported to MRI via stretcher.
[2024-05-12 15:22] LABS: HIV Combo Negative (Negative)
--- NOTE | 2024-05-12 16:41 | CON.INTV ---
Consultation
Consultation Request
Date/Time Consultation Requested: 05/13/2023
Date/Time Consultation Performed: 05/13/2023: 10 am
Reason for Consultation: Concern for progressive neurological weakness
Medical History
-
Chief Complaint: Weakness, legs
History of Present Illness:
HPI: This is a 38-year-old RH man who presented to [facility] ER on 05/11/2024 with motor deficits. According to the patient he found himself on the floor dressed covered in vomit on 04/11/2024 at 2 am.
He recalls inability to move his lower extremities with tingling of left leg. Patient also reports an episode which appears to be syncope. Patient reports having been vaccinated for influenza about 3 days ago and also reports having taken
prednisone given by a family member without improvement in his symptoms.
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 Patient was subsequently admitted to ICU for initiation of IVIG therapy and consultation to
intensive care service was requested for concern of progressive neurological deterioration.
PMH: HTN, vit B12, D deficiency, PTSD, SOCRATES, insomnia
PSH:chin implant, rhinoplasty
SH: lives with a partner; has 2 children ages 2 and 5; nonsmoker; no history of excessive ETOh use, former
FH: Not contributory
All: sulfas
MRI brain: On sagittal T1-weighted images, 4 mm rounded prominence of increased T1-weighted signal in the region of the infundibulum with loss of degenerative visualization of the posterior pituitary gland within the sella. This could represent
ectopic posterior pituitary gland, versus slight prominence of the infundibulum as normal variation. As warranted, consider further evaluation with additional thin section imaging through the pituitary gland. No other significant MR finding within
the brain.
MRI T-spine: Within the visualized lungs, patchy areas of parenchymal opacity/signal bilaterally, there appears to be greater involvement of the right lung when compared to the left. Findings raise suspicion for pneumonia, although chronic
parenchymal disease is also possible. Consider further evaluation with chest radiograph initially. Normal morphology and signal intensity of the cervical and thoracic spinal cord. Conus medullaris appears within normal limits. No evidence for
abnormal enhancement of the spinal cord. No evidence for abnormal enhancement of the visualized nerve roots within the superior aspect of the cauda equina.
Social History
Tobacco: Non-smoker
Family History
Family History: Reviewed & Not Pertinent
Allergies / Home Medications
Allergies
Allergy/AdvReac Type Severity Reaction Status Date / Time
Sulfa (Sulfonamide Allergy Mild Rash Verified 05/11/24 11:54
Antibiotics)
Home Medications
�Medication �Instructions �Recorded �Confirmed �Last Taken �Type
alprazolam 2 mg tablet 6 mg PO HS 05/11/24 05/11/24 Unknown History
clonazepam 2 mg tablet 4 mg PO QPM 05/11/24 05/11/24 Unknown History
cyanocobalamin (vitamin B-12) 1,000 mcg IM MONTHLY 05/11/24 05/11/24 Unknown History
1,000 mcg/mL injection solution
dutasteride 0.5 mg capsule 0.5 mg PO DAILY 05/11/24 05/11/24 Unknown History
ergocalciferol (vitamin D2) 1,250 2,500 mcg PO WEEKLY 05/11/24 05/11/24 Unknown History
mcg (50,000 unit) capsule
eszopiclone 1 mg tablet 1 mg PO HSPRN PRN insomnia 05/11/24 05/11/24 Unknown History
finasteride 1 mg tablet (Propecia) 1 mg PO DAILY 05/11/24 05/11/24 Unknown History
gabapentin 600 mg tablet 600 mg PO TID 05/11/24 05/11/24 Unknown History
hydrochlorothiazide 12.5 mg capsule 12.5 mg PO QPM 05/11/24 05/11/24 Unknown History
methylprednisolone 32 mg tablet 32 mg PO .TAPER weakness, rash 05/11/24 05/11/24 05/11/24 02:00 History
16 mg
minoxidil 2.5 mg tablet 2.5 mg PO QPM 05/11/24 05/11/24 Unknown History
Review of Systems
-
Hematologic/Lymphatic: Other (Negative except as stated above in history of present illness.)
Vitals / Labs / Diagnostic Testing
Vital Signs
Temp Pulse Resp BP Pulse Ox
98.4 F 90 13 150/72 98
05/12/24 15:29 05/12/24 13:15 05/12/24 13:15 05/12/24 13:00 05/12/24 12:45
Lab Data
05/12/24 03:19
05/12/24 06:00
Laboratory Results
05/11/24 05/12/24 05/12/24
16:29 03:19 04:07
PT 14.1
INR 1.06
APTT Cancelled 27.7
Diagnostic Testing:
Physical Exam
-
HEENT: Normocephalic
Cardiovascular: Regular Rhythm
Respiratory: Clear and Non-Labored Respirations
GI: Soft and Non Distended
Neurology: Awake, Alert, Oriented and Tremors (No tremors or spasticity on my exam)
Skin: Warm
General: Comfortable
Exam:
Patient able to ambulate in the room and on my exam does not appear to have a motor deficit of upper extremities. Lower extremities appear to be 4/5 on left and 3/5 on right.
Assessment
-
Very pleasant 38-year-old gentleman presented to the emergency room with concern of progressive lower extremity weakness after influenza vaccination 3 days ago. 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
IVIG.
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
-Patient currently receiving IVIG
-Neurology service on case and lumbar puncture is currently pending
-Completed CT and MRI have been unremarkable so far
-From critical care standpoint, patient is awake alert and protecting airway as well. He has a strong cough and does not appear to have any respiratory muscle weakness during my evaluation. No trouble swallowing. No dysphonia. Patient is stable
to be transferred out of critical care unit
-Recommend NIF testing and monitoring on the floor
-Please consult hearing aid assembly supervisor service as needed
Critical care statement: A total of 35 minutes of critical care time was provided for this patient today. This includes management of unstable vital signs, evaluation of the patient at bedside, reviewing the patient's pertinent medical records
including ventilator settings, arterial blood gases, radiographs, microbiology, laboratory evaluations and discussion with primary team, critical care nursing, and respiratory therapy.
--- NOTE | 2024-05-12 16:44 | PTCARENOTE ---
Report given to IMU RN.Pt is still in MRI.Pt's mother escorted to [facility] room 3354.
[2024-05-12] MEDS: ORETIC 12.5 MG PO (17:28)
[2024-05-12] MEDS: NON-FORMULARY ITEM 1 MG PO (17:45)
--- NOTE | 2024-05-12 17:55 | PTCARENOTE ---
Addendum entered by Lisa Longoria RN 05/12/24 18:27:
Dr Saldivar made aware via TT.
Original Note:
Received patient on t/f from ICU after MRI; able to slide from stretcher to bed himself. Mom at bedside. Patient refused neurontin; he did take oretic. Patient's own Propecia brought over from [employer]; documented refused from earlier. Patient
requesting to take at this time. Med brought to pharmacist for new barcode so med can be scanned. Patient refused minoxidil stating he took a 2.5mg pill from home while he was in ICU. Pharmacist Sujata made aware.
[2024-05-12] MEDS: NEURONTIN 600 MG PO (20:58)
[2024-05-12] MEDS: XANAX 6 MG PO (21:08)
[2024-05-12] MEDS: KLONOPIN 4 MG PO (21:09)
[2024-05-12] MEDS: AMBIEN 5 MG PO (21:09)
[2024-05-13] VITALS (32 sets, daily range): BP systolic 84–143; BP diastolic 73–107; BMI 20.4
[2024-05-13] MEDS: GAMMAGARD 300 IV (00:07)
[2024-05-13] MEDS: TYLENOL 650 MG PO ×2 (00:08→17:28)
[2024-05-13] MEDS: BENADRYL 25 MG IV (00:08)
--- NOTE | 2024-05-13 02:22 | PTCARENOTE ---
Patient is aox3, very talkative. Patient concerned about possible LP tomorrow and is not able to sleep. Patient used walker to use bathroom with two staff assist on each side. RA satting at 95%. NSR on monitor. Call montalvo in reach.
[2024-05-13 05:48] LABS: % Basophils 1.3 % (0-2); % Eosinophils 2.7 % (0-6); % Immature Granulocytes 3.1 % (0-0.5); % Lymphocytes 44.2 % (20.5-51.1); % Monocytes 7.1 % (1.7-9.3); % Neutrophils 41.6 % (42.2-75.2); Absolute Basophils 0.1 10^3/uL (0-0.2); Absolute Eosinophils 0.2 10^3/uL (0-0.7); Absolute Immature Granulocytes 0.2 10^3/uL (0-0.05); Absolute Lymphocytes 2.4 10^3/uL (1.2-3.4); Absolute Monocytes 0.4 10^3/uL (0.1-0.6); Absolute Neutrophils 2.3 10^3/uL (1.4-6.5); Hematocrit 34.4 % (39.0-52.0); Hemoglobin 11.7 g/dL (13.0-18.0); Mean Corpuscular Hgb 29.7 pg (27.0-31.0); Mean Corpuscular Volume 87.3 fL (80.0-94.0); Mean Platelet Volume 8.3 fL (7.4-10.4); Nucleated Red Blood Cells % 0 % (-); Platelet Count 317 10^3/uL (130-400); Red Blood Cell Count 3.94 10^6/uL (4.70-6.10); Red Cell Dist. Width 12.7 % (11.5-14.5); White Blood Cell Count 5.5 10^3/uL (4.8-10.8)
[2024-05-13 05:50] LABS: ALT (SGPT) 25 U/L (0-50); AST (SGOT) 30 U/L (17-59); Alkaline Phosphatase 61 U/L (38-126); Blood Urea Nitrogen 21 mg/dl (9-20); Calcium 9.2 mg/dl (8.4-10.2); Carbon Dioxide 28 mmol/L (22-30); Chloride 100 mmol/L (98-107); Estimated Creatinine Clearance > 125 ml/min; Glucose 89 mg/dl (70-99); Potassium 3.7 mmol/L (3.5-5.1); Sodium 138 mmol/L (135-145); Total Bilirubin 0.6 mg/dl (0.2-1.3); Total Protein 7.5 g/dl (6.3-8.2); eGFR > 60.00
--- NOTE | 2024-05-13 07:07 | W.PN.HOSP.TC ---
Today's Communication/Plan
-
LP today
Assessment / Plan
Assessment / Plan
MRI brain: On sagittal T1-weighted images, 4 mm rounded prominence of increased T1-weighted signal in the region of the infundibulum with loss of degenerative visualization of the posterior pituitary gland within the sella. This could represent
ectopic posterior pituitary gland, versus slight prominence of the infundibulum as normal variation. As warranted, consider further evaluation with additional thin section imaging through the pituitary gland. No other significant MR finding within
the brain.
MRI T-spine: Within the visualized lungs, patchy areas of parenchymal opacity/signal bilaterally, there appears to be greater involvement of the right lung when compared to the left. Findings raise suspicion for pneumonia, although chronic
parenchymal disease is also possible. Consider further evaluation with chest radiograph initially. Normal morphology and signal intensity of the cervical and thoracic spinal cord. Conus medullaris appears within normal limits. No evidence for
abnormal enhancement of the spinal cord. No evidence for abnormal enhancement of the visualized nerve roots within the superior aspect of the cauda equina.
#B/L LE weakness, R>L:
-concern for GBS
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 Function returned to left side, has had persistent weakness to RLE (has been using cane)
-took prednisone 32mg(from father)
-recent vaccination history noted in H&P, reportedly he received Prevnar and COVID-vaccine in April 2024 and flu vaccine 3 days prior to coming to the
-MRI brain and T-spine above, unremarkable for acute neurological findings
-MRI C-spine and lumbar spine with no MRI evidence of acute abnormality.
-ESR 27, CRP 146
-neuro following
-cont IVIG x 2/5 days
-IR c/s placed for LP (routine fluid studies as well as GIOVANY); patient n.p.o. for LP today
-check EEG
-serum GIOVANY, VZV, Vit B1, JOSE pending
-Syphilis, hep B, HIV negative
-NCS/EMG in 3 weeks
-MRI lumbar with and without contrast
# leukocytosis
-Resolved
# Rash on face; unclear
-Dermatology not available
#Essential hypertension
-Cont HCTZ/minoxidil
#PTSD/Anxiety
-cont home Xanax/Klonopin.
-Cleared by psych
#BPH
-cont Proscar
#B12 deficiency
-B12 normal
Full code
DVT ppx: heparin
Anticipated Discharge: Within 24 hours
Subjective/Interval History
-
Date of Service: May 13, 2024
AFVSS. Patient offers no new complaints. Continues to experience weakness in the right lower extremity.
Objective Data
-
Labs:
Laboratory Results
05/13/24
04:42
WBC 5.5
Hgb 11.7 L
Hct 34.4 L
Plt Count 317
Sodium 138
Potassium 3.7
Chloride 100
Carbon Dioxide 28
BUN 21 H
Creatinine 0.7
Glucose 89
Calcium 9.2
Total Bilirubin 0.6
AST 30
ALT 25
Alkaline Phosphatase 61
Vital Signs:
Vital Signs
Temp Pulse Resp BP Pulse Ox
98.0 F 85 9 117/95 98
05/13/24 03:00 05/13/24 05:00 05/13/24 05:00 05/13/24 05:00 05/13/24 05:00
I&O
05/12/24 05/13/24 05/14/24
06:59 06:59 06:59
Intake Total 607.8 / 707.8 1620 / 1620
Balance 607.8 / 707.8 1619 / 1620
Review of Systems
-
History Source: Patient
Constitutional: Reports Weight Loss
EENT: Reports No Symptoms Reported
Respiratory: Reports No Symptoms
Cardiac: Reports No Symptoms
Abdomen/GI: Reports No Symptoms
Musculoskeletal: Reports Muscle Weakness (Right leg)
Neuro: Reports Weakness
Physical Exam
-
General: Well Nourished and No Apparent Distress
HEENT: Normocephalic and Atraumatic
Respiratory: Clear to Auscultation
Cardiac: Regular Rhythm and S1/S2
GI: Soft, Nontender and Nondistended
Skin: Warm, Dry and Rash (Light brown nonitchy flat; lower middle forehead and nasal bridge)
Neuro: Awake, Alert, Oriented and Other (right dorsiflexion 4/5, left dorsiflexion5/5, right planter flexion 0/5, left planter flexion 5/5, decreased sensation to light touch in right lower leg)
Psych: Calm
Data Reviewed
-
Labs: Labs Reviewed by me, Discussed with Physician and Discussed with Patient
--- NOTE | 2024-05-13 07:54 | W.PN.NEURO.1 ---
Today's Communication / Plan
-
.
Subjective/Objective
Subjective Data
Date of Service: May 13, 2024
Neurology Follow Up Note.
24h events: hemodynamically stable, afebrile. LP-pending.
Mr. Somers notes improvement in the right proximal leg weakness with the left leg being almost '100%' recovered. However, the right leg and foot remain weak, requiring the use of a walker for ambulation. Continues to have numbness in the right leg.
He endorses a concern of meningitis as a LP complication.
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 The states that he has been handling raw cat food, which poses a risk for 'listeria' exposure. The patient denies
headaches, vision changes, or speech issues. Breathing has been improving. The patient reports no history of HSV-1 or HSV-2.
Mr. Somers deferred EEG due to his hair stype concerns and requested to assist to wash his hair prior and after EEG.
No reports of urinary urgency, retention.
T spine MRI w/wo karolyn(05/11/2024) no evidence of spinal cord abnormalities, patchy areas of pulmonary parenchymal opacity/signal bilaterally, there appears to be greater involvement of the right lung when compared to the left.
Brain MRI w/wo karolyn(05/11/2024) ectopic posterior pituitary gland vs prominence of the infundibulum as normal variant.
Labs: CRP�146.80.
Ua sample for ua tox was never provided.
PMH: HTN, vit B12, D deficiency, PTSD, KAROLYN, insomnia, h/o withdrawal seizure
PSH: chin implant, rhinoplasty
SH: lives with a partner; has 2 adopted children ages 2 and 5; nonsmoker; no history of excessive ETOh use, former
FH: Not contributory
All: sulfas
ROS: Constitutional: Negative. Negative for chills, fever and unexpected weight change.
HENT: Positive for intermittent dysphagia to solid
Eyes: Negative. Negative for photophobia, pain and visual disturbance.
Respiratory: Negative for cough, choking and shortness of breath.
Cardiovascular: Negative for chest pain, palpitations and leg swelling.
Gastrointestinal: Negative for abdominal pain and vomiting.
Endocrine: Negative. Negative for cold intolerance.
Genitourinary: Negative for dysuria, flank pain and urgency.
Musculoskeletal: Negative for neck or back pain.
Skin: Positive for rash
Allergic/Immunologic: Negative. Negative for immunocompromised state.
Neurological: Positive for leg weakness and paresthesias
General: Well developed. In no acute distress.
Cardio: Regular rate and rhythm without murmur. Extremities are without cyanosis or edema.
Neuro:
Mental Status: Alert, oriented to person, place, and date. Normal attention and recall. Good fund of knowledge. Follows complex requests across the midline. Comprehension, naming, and repetition intact.
Cranial Nerves: Pupils are equally round and reactive to light. EOMs full. Visual barillas full to confrontation. No ptosis. No nystagmus. V1-V3 intact to light touch and pinprick bilaterally, symmetric. Face symmetric. Normal hearing AU. The
palate elevated well. SCMs and traps 5/5. Tongue midline. No dysarthria.
Motor: Normal bulk and tone. No pronator or arm drift. Strength 5/5 throughout except for right hip flexion�5-/5, knee extension�4/5, right dorsiflexion�0/5, right plantarflexion�3 out of 5, right foot eversion and inversion�2- out of 5 left
dorsiflexion/plantar flexions 5/5. No clonus.
Reflexes: 2+ throughout the upper extremities and knees. 0/2 in AJs. Plantar responses flexor bilaterally. Negative Larry's bilaterally
Sensory: Reduced light touch in the right L2�S1 distribution.
Coordination: No dysmetria or tremor.
Gait: deferred
Assessment and Plan:
I. Guillain Chester syndrome. I recommend:
II. Elevated CRP
III. Syncope versus seizure
IV. Status post unwitnessed fall
V. Rash
. 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
VII. History of withdrawal seizures. Ua sample for ua tox was never provided.
-Continue telemetry
-Continue IVIG 0.4 g/kg/day for 5 days.
-LP with sedation
-MRI C/LS spine with karolyn
-Will follow-up requested serological and CSF studies
-Skin biopsy when able
-NCS//EMG in 3 weeks
-Routine EEG
-DVT prophylaxis.
I personally reviewed all radiology and labs along with past medical records pertinent to current medical problems. Total time spent in patient care is 40 minutes.
Thank you for allowing us to participate in the care of this patient. We will continue to follow. Please do not hesitate to contact us with any questions or concerns
Objective Data
Vital Signs
Temp Pulse Resp BP Pulse Ox
36.7 C 85 9 117/95 98
05/13/24 03:00 05/13/24 05:00 05/13/24 05:00 05/13/24 05:00 05/13/24 05:00
Lab Results
05/13/24 04:42
05/13/24 04:42
PT 14.1 Sec (11.4-14.6) 05/11/24 16:29
INR 1.06 05/11/24 16:29
APTT 27.7 Sec (23.4-35.0) 05/12/24 04:07
Sodium 138 mmol/L (135-145) 05/13/24 04:42
Potassium 3.7 mmol/L (3.5-5.1) 05/13/24 04:42
BUN 21 mg/dl (9-20) H 05/13/24 04:42
Glucose 89 mg/dl (70-99) 05/13/24 04:42
Calcium 9.2 mg/dl (8.4-10.2) 05/13/24 04:42
Phosphorus 3.1 mg/dl (2.5-4.5) 05/11/24 13:23
Vitamin B12 591 pg/ml (537-931) 05/11/24 16:29
Patient Allergies
Sulfa (Sulfonamide Antibiotics) Allergy (Mild, Verified 05/11/24 11:54)
Rash
Vital Signs and Labs
-
Vital Signs and Labs:
Vital Signs
Temp Pulse Resp BP Pulse Ox
36.6 C 85 9 117/95 98
05/13/24 07:45 05/13/24 05:00 05/13/24 05:00 05/13/24 05:00 05/13/24 05:00
Lab Results
05/13/24 04:42
05/13/24 04:42
PT 14.1 Sec (11.4-14.6) 05/11/24 16:29
INR 1.06 05/11/24 16:29
APTT 27.7 Sec (23.4-35.0) 05/12/24 04:07
Sodium 138 mmol/L (135-145) 05/13/24 04:42
Potassium 3.7 mmol/L (3.5-5.1) 05/13/24 04:42
BUN 21 mg/dl (9-20) H 05/13/24 04:42
Glucose 89 mg/dl (70-99) 05/13/24 04:42
Calcium 9.2 mg/dl (8.4-10.2) 05/13/24 04:42
Phosphorus 3.1 mg/dl (2.5-4.5) 05/11/24 13:23
Vitamin B12 591 pg/ml (124-931) 05/11/24 16:29
Medications
-
Medications:
Generic Name Dose Route Start Last Admin
Trade Name Freq PRN Reason Stop Dose Admin
Acetaminophen 650 mg 05/11/24 22:03
Acetaminophen 325 Mg Tablet PO 06/08/24 22:02
Q4HPRN PRN
mild pain/VILLAGRAN/temp> 100.4F
Acetaminophen 650 mg 05/12/24 00:00 05/13/24 00:08
Acetaminophen 325 Mg Tablet PO 05/16/24 00:01 650 mg
DAILY@0000 JANET Administration
Alprazolam 6 mg 05/11/24 23:00 05/12/24 21:08
Alprazolam 1 Mg Tablet PO 06/08/24 22:59 6 mg
HS JANET Administration
Clonazepam 4 mg 05/12/24 22:00 05/12/24 21:09
Clonazepam 1 Mg Tablet PO 06/09/24 21:59 4 mg
HS JANET Administration
Diphenhydramine HCl 25 mg 05/12/24 00:00 05/13/24 00:08
Diphenhydramine 50 Mg/Ml 1 Ml Vial IV 05/16/24 00:01 25 mg
DAILY@0000 JANET Administration
Gabapentin 600 mg 05/11/24 23:00 05/13/24 08:46
Gabapentin 300 Mg Capsule PO 06/08/24 22:59 600 mg
TID JANET Administration
Heparin Sodium 5,000 units 05/11/24 22:03 05/13/24 08:45
Heparin 5,000 Units/Ml 1 Ml Vial SC 06/08/24 22:02 5,000 units
Q12 JANET Administration
Hydrochlorothiazide 12.5 mg 05/11/24 22:15 05/12/24 17:28
Hydrochlorothiazide 12.5 Mg Tablet PO 06/08/24 22:14 12.5 mg
QPM JANET Administration
Sodium Chloride 1,000 mls @ 100 mls/hr 05/11/24 16:15 05/13/24 08:46
Nss IV 1,000 mls
.Q10H JANET Administration
Immune Globulin 30 grams in 300 mls @ 0 mls/hr 05/12/24 00:00 05/13/24 00:07
Gammagard IV 05/16/24 00:01 300 mls
DAILY@0000 JANET Administration
Protocol
Per Protocol
Minoxidil 2.5 mg 05/11/24 22:03 05/12/24 17:26
Minoxidil 2.5 Mg Tablet PO 06/08/24 22:02 Not Given
QPM JANET
Finasteride [ 0 mg 05/12/24 17:30 05/13/24 08:45
Propecia] 1 Mg PO 06/09/24 17:29 1 mg
Tablet; 1 Tab Po DAILY JANET Administration
Daily
Sodium Chloride 0 flush 05/11/24 22:00
Sodium Chloride 0.9% (Flush) Syringe IV 06/08/24 21:59
PER PROTOCOL JANET
Zolpidem Tartrate 5 mg 05/11/24 22:13 05/12/24 21:09
Zolpidem Tartrate 5 Mg Tablet PO 06/08/24 22:12 5 mg
HSPRN PRN Administration
insomnia
Home Medications
-
Home Medications
alprazolam 2 mg tablet 6 mg PO HS PTSD 05/11/24
clonazepam 2 mg tablet 4 mg PO HS PTSD 05/11/24
cyanocobalamin (vitamin B-12) 1,000 mcg/mL injection solution 1,000 mcg IM MONTHLY Supplement 05/11/24
dutasteride 0.5 mg capsule 0.5 mg PO DAILY HAIR GROWTH 05/11/24
ergocalciferol (vitamin D2) 1,250 mcg (50,000 unit) capsule 2,500 mcg PO WEEKLY Supplement 05/11/24
eszopiclone 1 mg tablet 1 mg PO HSPRN PRN insomnia 05/11/24
finasteride 1 mg tablet (Propecia) 1 mg PO DAILY Hair growth 05/11/24
gabapentin 600 mg tablet 600 mg PO TID Mental Health/Anxiety 05/11/24
hydrochlorothiazide 12.5 mg capsule 12.5 mg PO QPM Blood Pressure 05/11/24
methylprednisolone 32 mg tablet 32 mg PO .TAPER weakness, rash 05/11/24
minoxidil 2.5 mg tablet 2.5 mg PO QPM Hair growth 05/11/24
[2024-05-13] MEDS: NON-FORMULARY ITEM 1 MG PO (08:45)
[2024-05-13] MEDS: HEPARIN 5000 UNITS SC ×2 (08:45→22:14)
--- NOTE | 2024-05-13 08:45 | W.PN.UPDATE ---
Update Note
Progress Note Update
I saw and evaluated the patient. I reviewed the resident�s note and agree with findings and plan as documented in the resident�s note.
Gen: NAD, AAOx3.
Eyes: EOMI, PERRLA, no scleral icterus.
Neck: supple.
CV: RRR, +S1/S2, no m/r/g.
Resp: CTAB, no rales, wheezes, or rhonchi.
Abd: +BS, soft, NT, ND
Skin: No rashes.
Neuro: CN 2-12 intact
Psych: Normal mood and affect.
MRI brain: On sagittal T1-weighted images, 4 mm rounded prominence of increased T1-weighted signal in the region of the infundibulum with loss of degenerative visualization of the posterior pituitary gland within the sella. This could represent
ectopic posterior pituitary gland, versus slight prominence of the infundibulum as normal variation. As warranted, consider further evaluation with additional thin section imaging through the pituitary gland. No other significant MR finding within
the brain.
MRI C-spine: No MRI evidence for an acute abnormality of the cervical spine.
MRI T-spine: Within the visualized lungs, patchy areas of parenchymal opacity/signal bilaterally, there appears to be greater involvement of the right lung when compared to the left. Findings raise suspicion for pneumonia, although chronic
parenchymal disease is also possible. Consider further evaluation with chest radiograph initially. Normal morphology and signal intensity of the cervical and thoracic spinal cord. Conus medullaris appears within normal limits. No evidence for
abnormal enhancement of the spinal cord. No evidence for abnormal enhancement of the visualized nerve roots within the superior aspect of the cauda equina.
MRI L-spine: No MRI evidence for an acute abnormality of the lumbar spine. Moderate left and mild right neuroforaminal stenosis at L5-S1 secondary to a disc bulge and facet arthrosis.
B/L LE weakness, R>L:
-concern for GBS
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 Function returned to left side, has had persistent weakness to RLE (has been using cane)
-took prednisone 32mg
-recent vaccination history noted in H&P, most recent vaccines 04/21/24
-MRI brain, C/T/L-spine above, unremarkable for acute neurological findings
-ESR 27, CRP 146
-cont IVIG x 5 days
-IR c/s placed for LP (routine fluid studies as well as GIOVANY)
-check EEG
-check serum GIOVANY, Lyme ab, HIV, HSV, VZV, Vit B1, copper, ESR/CRP; spot urine for porphyria, JOSE, heavy metal screen
-NCS/EMG in 3 weeks
-neuro following, discussed at length with Dr. Acosta
Other problems:
Essential HTN: cont HCTZ/minoxidil
PTSD/Anxiety: cont home Xanax/Klonopin. c/s psych.
BPH: cont Proscar
B12 deficiency: B12 normal
FULL/heparin
[2024-05-13] MEDS: NSS 1000 IV (08:46)
[2024-05-13] MEDS: NEURONTIN 600 MG PO ×3 (08:46→22:14)
[2024-05-13 10:19] LABS: Intact PTH 38.4 pg/ml (13.6-85.8)
--- NOTE | 2024-05-13 14:04 | EEGC.RPT ---
Continuous EEG Report
Recording
Start Date of Data Reviewed: 05/13/24
Done with Video Recording: Yes
Electrocardiogram: Unremarkable
Report
TECHNICAL REMARKS: This is a technically satisfactory eighteen channel record employing 21 disc electrodes applied according to a measured international 10-20 electrode placement system. There were no significant technical difficulties. The study
was done on a [employer] System.
CLINICAL HISTORY: This is a 38 year old man with a spell of alteration in awareness. This study was requested to look for epileptiform abnormalities.
MEDICATION: Clonazepam, alprazolam.
STUDY DURATION: 29 min, 52 secs
REPORT: At the onset of the EEG, the patient is awake. The background activity consists of 53805 Hz, persistent, posteriorly dominant, moderate amplitude, symmetric and rhythmic activity that is reactive to eye-opening. Anteriorly, it consists of a
mixture of low voltage indeterminate activity and 20-25 Hz, persistent, low amplitude, symmetric and rhythmic activity. Stepwise intermittent photic stimulation (1-31 Hz) does not induce any abnormalities. Hyperventilation was not performed.
Excessive generalized beta activity was present. Drowsiness is characterized by low amplitude mixed frequency activity, decreased eye blinking, and muscle artifact.
IMPRESSION: This is a normal awake and drowsy EEG. There is no evidence of focal slowing or epileptiform activity. A normal EEG does not rule out epilepsy. If the clinical picture warrants, a sleep-deprived awake and sleep record may be helpful.
--- NOTE | 2024-05-13 15:00 | PTCARENOTE ---
Pt completed EEG, pre and post shampooing completed with Miley HAGEN. NPO since MN- voided in bathroom with mod assist / and cane. Insisted - refusing urinal. To [facility] for lumbar puncture with sedation.
--- NOTE | 2024-05-13 15:50 | CM ---
senior sales operations manager reviewed patient's chart and physical therapy are recommending acute rehab for patient, patient will need PM&R evaluation, and referrals to acute rehab, [facility] maybe closer to patient's home.
Plan; Physical therapy are recommending acute rehab, will discuss options and await PM&R evaluation.
[2024-05-13 17:07] LABS: CSF Clarity Clear; CSF Color Colorless; CSF Tube # 1; Red Cell Count/CSF 2 mm^3; White Cell Count/CSF 2 mm^3 (0-5)
[2024-05-13] MEDS: NON-FORMULARY ITEM 1 UNIT PO ×2 (17:09→17:12)
[2024-05-13 17:10] LABS: Spinal Fluid Glucose 55 mg/dl (40-70); Spinal Fluid Protein 50 mg/dl (12-60)
[2024-05-13] MEDS: ORETIC 12.5 MG PO (17:12)
[2024-05-13 17:13] LABS: CSF Color Colorless; CSF Tube # 4; CSF Tube # Clarity Clear; Red Cell Count/CSF 0 mm^3; White Blood Cell Count/CSF 1 mm^3 (0-5)
--- NOTE | 2024-05-13 17:34 | PTCARENOTE ---
Returned from [facility] , agitated over bed restriction agitated with this commercial loan underwriter. PO meds given, diet ordered, IVF resumed. Bandaid on low back CDI. Tylenol given for headache 05/18. Educated on bedrest / lumbar puncture- resists information as he
'was told other instructions in dept'. Whispers constant conversation. VS documented. Assisted with remote to find TV as now he 'cant see ' . Instructed on bedrest again, instructed not to get up on own. Call montalvo with him, bed alarm engaged.
--- NOTE | 2024-05-13 18:27 | PTCARENOTE ---
Bedrest with hob restrictions explained to patient- Pt insistent on getting into the bathroom to urinate- urinal provided refusing to use- offered several ways to assist with this - reviewed orders several times with him - he is getting up on his
own- setting bed alarm off. Pt ambulated to bathroom with cane at first totally unsteady- provided walker- then would not sit argued about that too. got back to bed- bed alarm again engaged- unhappy with this short term physician order- 'I just
cant believe it will hurt anything' - pt educated several times- already has been given Tylenol for mild headache.
--- NOTE | 2024-05-13 21:00 | PTCARENOTE ---
Received pt from day shift RN. Pt aaox3 and talkative with flight of ideas. Pt OOB x2 with cane to BR. Unsteady gait and LE weakness R>L. Pt assigned another room as he is now [facility] level of care. Verbal report given to ZECHARIAH Vu. Pt transported
via wheelchair to 3W with all belongings and medications.
--- NOTE | 2024-05-13 22:00 | PTCARENOTE ---
Pt arrived to 3 west from IMU via wheelchair. Pt ambulated safely into room 333 with staff assist and use of single point cane. Pt very talkative, AAOx3. Pt oriented to room, call montalvo within reach, rings appropriately, able to make needs known.
Discussed with pt need of urine sample, pt refused and said he wanted to talk to doctor tomorrow. Care ongoing.
[2024-05-13] MEDS: KLONOPIN 4 MG PO (22:15)
[2024-05-13] MEDS: XANAX 6 MG PO (22:15)
[2024-05-14] MEDS: TYLENOL 650 MG PO (00:01)
[2024-05-14] MEDS: BENADRYL 25 MG IV (00:01)
[2024-05-14] MEDS: GAMMAGARD 300 IV (00:25)
[2024-05-14 05:44] LABS: Angiotensin-1-converting Enzym 16 U/L (16-85)
[2024-05-14 06:17] LABS: ANA, IgG Reflex to HEp-2 Detected (None Detected)
[2024-05-14 06:42] LABS: % Basophils 0.7 % (0-2); % Eosinophils 2.3 % (0-6); % Lymphocytes 36.7 % (20.5-51.1); % Monocytes 5.8 % (1.7-9.3); % Neutrophils 53.5 % (42.2-75.2); Absolute Basophils 0.1 10^3/uL (0-0.2); Absolute Eosinophils 0.2 10^3/uL (0-0.7); Absolute Immature Granulocytes 0.1 10^3/uL (0-0.05); Absolute Lymphocytes 2.5 10^3/uL (1.2-3.4); Absolute Monocytes 0.4 10^3/uL (0.1-0.6); Absolute Neutrophils 3.7 10^3/uL (1.4-6.5); Hematocrit 34.7 % (39.0-52.0); Hemoglobin 11.8 g/dL (13.0-18.0); Mean Corpuscular Hgb 29.4 pg (27.0-31.0); Mean Corpuscular Volume 86.5 fL (80.0-94.0); Mean Platelet Volume 8.1 fL (7.4-10.4); Nucleated Red Blood Cells % 0 % (-); Platelet Count 310 10^3/uL (130-400); Red Blood Cell Count 4.01 10^6/uL (4.70-6.10); Red Cell Dist. Width 12.4 % (11.5-14.5); White Blood Cell Count 6.8 10^3/uL (4.8-10.8)
--- NOTE | 2024-05-14 07:03 | W.PN.HOSP.TC ---
Today's Communication/Plan
-
Continue current management: IVIG day 3/5
Neuro following
Awaiting CSF results
Psych reconsulted
Assessment / Plan
Assessment / Plan
MRI brain: On sagittal T1-weighted images, 4 mm rounded prominence of increased T1-weighted signal in the region of the infundibulum with loss of degenerative visualization of the posterior pituitary gland within the sella. This could represent
ectopic posterior pituitary gland, versus slight prominence of the infundibulum as normal variation. As warranted, consider further evaluation with additional thin section imaging through the pituitary gland. No other significant MR finding within
the brain.
MRI T-spine: Within the visualized lungs, patchy areas of parenchymal opacity/signal bilaterally, there appears to be greater involvement of the right lung when compared to the left. Findings raise suspicion for pneumonia, although chronic
parenchymal disease is also possible. Consider further evaluation with chest radiograph initially. Normal morphology and signal intensity of the cervical and thoracic spinal cord. Conus medullaris appears within normal limits. No evidence for
abnormal enhancement of the spinal cord. No evidence for abnormal enhancement of the visualized nerve roots within the superior aspect of the cauda equina.
#B/L LE weakness, R>L:
-concern for GBS
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 Function returned to left side, has had persistent weakness to RLE (has been using cane)
-took prednisone 32mg(from father)
-recent vaccination history noted in H&P, reportedly he received Prevnar and COVID-vaccine in April 2024 and flu vaccine 3 days prior to coming to the
-MRI brain and T-spine above, unremarkable for acute neurological findings
-MRI C-spine and lumbar spine with no MRI evidence of acute abnormality.
-ESR 27, CRP 146, JOSE +
-cont IVIG x 3/5 days
-s/p LP with IR; csf studies pending
-s/p normal EEG with neuro
-Lyme, serum GIOVANY, VZV, Vit B1, JOSE pending
-Syphilis, hep B, HIV negative
# leukocytosis
-Resolved
# Rash on face; unclear
-Dermatology not available
#Essential hypertension
-Cont HCTZ/minoxidil
#PTSD/Anxiety
-cont home Xanax/Klonopin.
-Psych reconsulted; patient does not want to talk and have a flat affect today.
#BPH
-cont Proscar
#B12 deficiency
-B12 normal
Full code
DVT ppx: heparin
Anticipated Discharge: 24 - 48 hours
Subjective/Interval History
-
Date of Service: May 14, 2024
AFVSS. Patient offers no new complaints. He does not want to talk today.
Objective Data
-
Labs:
Laboratory Results
05/14/24
05:55
WBC 6.8
Hgb 11.8 L
Hct 34.7 L
Plt Count 310
Sodium Pending
Potassium Pending
Chloride Pending
Carbon Dioxide Pending
BUN Pending
Creatinine Pending
Glucose Pending
Calcium Pending
Total Bilirubin Pending
AST Pending
ALT Pending
Alkaline Phosphatase Pending
Vital Signs:
Vital Signs
Temp Pulse Resp BP Pulse Ox
97.9 F 97 18 110/77 94
05/13/24 23:22 05/13/24 23:22 05/13/24 23:22 05/13/24 23:22 05/13/24 23:22
I&O
05/13/24 05/14/24 05/15/24
06:59 06:59 06:59
Intake Total 1620 / 1620 480 / 480
Balance 1620 / 1620 480 / 480
Review of Systems
-
History Source: Patient
Constitutional: Reports No Symptoms and Weight Loss
EENT: Reports No Symptoms Reported
Respiratory: Reports No Symptoms
Cardiac: Reports No Symptoms
Abdomen/GI: Reports No Symptoms
Musculoskeletal: Reports Muscle Weakness (Right leg)
Neuro: Reports Weakness
Physical Exam
-
General: Well Nourished and No Apparent Distress
HEENT: Normocephalic and Atraumatic
Respiratory: Clear to Auscultation
Cardiac: Regular Rhythm and S1/S2
GI: Soft, Nontender and Nondistended
Skin: Warm, Dry and Rash (Light brown nonitchy flat; lower middle forehead and nasal bridge)
Neuro: Awake, Alert, Oriented and Other (right dorsiflexion 4/5, left dorsiflexion5/5, right planter flexion 0/5, left planter flexion 5/5, decreased sensation to light touch in right lower leg)
Psych: Other (Flat affect)
Data Reviewed
-
Labs: Labs Reviewed by me, Discussed with Physician and Discussed with Patient
[2024-05-14 07:17] VITALS: BP 110/73
[2024-05-14 08:19] LABS: ALT (SGPT) 25 U/L (0-50); AST (SGOT) 29 U/L (17-59); Albumin 3.8 g/dl (3.5-5.0); Alkaline Phosphatase 64 U/L (38-126); Blood Urea Nitrogen 18 mg/dl (9-20); Calcium 9.8 mg/dl (8.4-10.2); Carbon Dioxide 29 mmol/L (22-30); Chloride 100 mmol/L (98-107); Estimated Creatinine Clearance > 125 ml/min; Glucose 100 mg/dl (70-99); Sodium 137 mmol/L (135-145); Total Bilirubin 0.4 mg/dl (0.2-1.3); Total Protein 7.9 g/dl (6.3-8.2); eGFR > 60.00
--- NOTE | 2024-05-14 08:51 | W.PN.UPDATE ---
Addendum entered and electronically signed by oJhn Saldivar MD 05/14/24 18:09:
Pt seen and examined this AM. Pt was sleeping. He was awoken from sleep and asked if he had any questions. He looked at me and then went back to sleep.
Pt updated over the phone at 1750 on 05/14/24. The pt expressed concerns that yesterday evening he was transferred out of the ICU to a room with a patient that was coughing. He expressed his concerns and was transferred to room 333. He also stated
that he was concerned about the suggestion from neurology that he might want to have a repeat LP in the future, potentially in 1 week. The patient explained that he wanted to have the rest of his IVIG as an outpatient in the infusion center. It had
been communicated to the patient prior that IVIG would not be given in the infusion center for a patient with possible GBS. The patient then expressed concerns that the nurse overnight would not give the pt Imodium. The patient was also upset that a
urine tox screen was recommended (which he refused).
I explained to the pt and his mother that I recommend that the pt return to the hospital immediately to complete his course of IVIG (next dose would be 0020 05/15/24). He states that he [place] an hour away and that his mother cannot drive him back to
the hospital in the dark. I encouraged the pt to come back to the hospital even if it means taking an UBER. He verbally acknowledged understanding of this.
Original Note:
Update Note
Progress Note Update
I saw and evaluated the patient. I reviewed the resident�s note and agree with findings and plan as documented in the resident�s note.
Pt offers no new complaints.
Gen: NAD, Awake and alert
Eyes: EOMI, PERRLA, no scleral icterus.
Neck: supple.
CV: remains RRR, +S1/S2, no m/r/g.
Resp: remains CTAB, no rales, wheezes, or rhonchi.
Abd: +BS, soft, NT, ND
Skin: No rashes.
Neuro: CN 2-12 intact
Psych: flat affect.
MRI brain: On sagittal T1-weighted images, 4 mm rounded prominence of increased T1-weighted signal in the region of the infundibulum with loss of degenerative visualization of the posterior pituitary gland within the sella. This could represent
ectopic posterior pituitary gland, versus slight prominence of the infundibulum as normal variation. As warranted, consider further evaluation with additional thin section imaging through the pituitary gland. No other significant MR finding within
the brain.
MRI C-spine: No MRI evidence for an acute abnormality of the cervical spine.
MRI T-spine: Within the visualized lungs, patchy areas of parenchymal opacity/signal bilaterally, there appears to be greater involvement of the right lung when compared to the left. Findings raise suspicion for pneumonia, although chronic
parenchymal disease is also possible. Consider further evaluation with chest radiograph initially. Normal morphology and signal intensity of the cervical and thoracic spinal cord. Conus medullaris appears within normal limits. No evidence for
abnormal enhancement of the spinal cord. No evidence for abnormal enhancement of the visualized nerve roots within the superior aspect of the cauda equina.
MRI L-spine: No MRI evidence for an acute abnormality of the lumbar spine. Moderate left and mild right neuroforaminal stenosis at L5-S1 secondary to a disc bulge and facet arthrosis.
EEG: This is a normal awake and drowsy EEG. There is no evidence of focal slowing or epileptiform activity. A normal EEG does not rule out epilepsy. If the clinical picture warrants, a sleep-deprived awake and sleep record may be helpful.
B/L LE weakness, R>L:
-concern for GBS
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 Function returned to left side, has had persistent weakness to RLE (has been using cane)
-took prednisone 32mg
-recent vaccination history noted in H&P, most recent vaccines 04/21/24
-MRI brain, C/T/L-spine above, unremarkable for acute neurological findings
-EEG unremarkable as above
-ESR 27, CRP 146
-cont IVIG x 5 days
-s/p LP 05/13/24, multiple CSF studies pending, acute meningitis PCR NEG
-Normal studies: GIOVANY, HIV, acute hepatitis panel, syphilis
-JOSE POS
-NCS/EMG in 3 weeks
-neuro following
Other problems:
Essential HTN: cont HCTZ/minoxidil
PTSD/Anxiety: cont home Xanax/Klonopin. c/s psych.
BPH: cont Proscar
B12 deficiency: B12 normal
FULL/heparin
[2024-05-14] MEDS: HEPARIN SC ×2 (08:55→11:46)
[2024-05-14] MEDS: NON-FORMULARY ITEM PO ×6 (08:56→11:46)
[2024-05-14] MEDS: NEURONTIN PO ×3 (08:56→16:28)
--- NOTE | 2024-05-14 10:34 | W.PN.NEURO.1 ---
Today's Communication / Plan
-
.
Subjective/Objective
Subjective Data
Date of Service: May 14, 2024
Neurology Follow Up Note.
24h events: hemodynamically stable, afebrile.
Mr. Somers underwent lumbar puncture yesterday. No reports of headaches or back pain. His right leg continues to be weak and numb. No change in left leg strength or sensation.
The patient inquires whether he can continue IVIG on outpatient basis.
No symptoms of ophthalmoparesis or dysautonomia.
CSF(05/13/2024) normal cell count, protein, glucose
Routine EEG(05/13/24) unremarkable.
T spine MRI w/wo socrates(05/11/2024) no evidence of spinal cord abnormalities, patchy areas of pulmonary parenchymal opacity/signal bilaterally, there appears to be greater involvement of the right lung when compared to the left.
LS spine MRI w/wo socrates(05/12/2024) L5-S1 moderate left and mild right neuroforaminal stenosis, no enhancement.
Brain MRI w/wo socrates(05/11/2024) ectopic posterior pituitary gland vs prominence of the infundibulum as normal variant.
Ua sample for ua tox was never provided.
Serum: normal vit B12, free T4, neg RPR, GIOVANY, HIV.
PMH: HTN, vit B12/D deficiency, PTSD, SOCRATES, insomnia, h/o withdrawal seizure
PSH: chin implant, rhinoplasty
SH: lives with a partner; has 2 adopted children ages 2 and 5; nonsmoker; no history of excessive ETOh use
FH: Not contributory
All: sulfas
ROS: Constitutional: Negative. Negative for chills, fever and unexpected weight change.
HENT: Positive for intermittent dysphagia to solid
Eyes: Negative. Negative for photophobia, pain and visual disturbance.
Respiratory: Negative for cough, choking and shortness of breath.
Cardiovascular: Negative for chest pain, palpitations and leg swelling.
Gastrointestinal: Negative for abdominal pain and vomiting.
Endocrine: Negative. Negative for cold intolerance.
Genitourinary: Negative for dysuria, flank pain and urgency.
Musculoskeletal: Negative for neck or back pain.
Skin: Positive for rash
Allergic/Immunologic: Negative. Negative for immunocompromised state.
Neurological: Positive for leg weakness and paresthesias
General: Well developed. In no acute distress.
Cardio: Regular rate and rhythm without murmur. Extremities are without cyanosis or edema.
Neuro:
Mental Status: Alert, oriented to person, place, and date. Normal attention and recall. Good fund of knowledge. Follows complex requests across the midline. Comprehension, naming, and repetition intact.
Cranial Nerves: Pupils are equally round and reactive to light. EOMs full. Visual barillas full to confrontation. No ptosis. No nystagmus. V1-V3 intact to light touch and pinprick bilaterally, symmetric. Face symmetric. Normal hearing AU. The
palate elevated well. SCMs and traps 5/5. Tongue midline. No dysarthria.
Motor: Normal bulk and tone. No pronator or arm drift. Strength 5/5 throughout except for right hip flexion�5-/5, knee extension�4/5, right dorsiflexion�0/5, right plantarflexion�3 out of 5, right foot eversion and inversion�2- out of 5 left
dorsiflexion/plantar flexions 5/5. No clonus.
Reflexes: 2+ throughout the upper extremities and knees. 0/2 in AJs. Plantar responses flexor bilaterally. Negative Larry's bilaterally
Sensory: Reduced light touch in the right L2�S1 distribution.
Coordination: No dysmetria or tremor.
Gait: deferred
Assessment and Plan:
I. Atypical Guillain Sharon syndrome. Clinically stable. The albuminocytologic dissociation may be present in 50-66 % percent of patients in the first week after the onset of symptoms and >75 % of patients in the third week.
In some series, a normal CSF protein is found in 1/3-1/2 of patients when tested earlier than one week from symptom onset and therefore does not exclude the diagnosis of GBS.
II. Elevated CRP/ESR
III. LS DJD
IV. Rash
V. Syncope versus seizure , history of withdrawal seizures. Ua sample for ua tox was never provided.
. 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
-Continue telemetry
-Continue IVIG 0.4 g/kg/day(day 4/5)
-Will follow-up requested serological and CSF studies
-NCS/EMG in 3 weeks
-Repeat CSF in 1 week
-Check antiganglioside antibodies
-Repeat brain MRI w/wo socrates as OP(pituitary protocol)
-DVT prophylaxis.
I personally reviewed all radiology and labs along with past medical records pertinent to current medical problems. Total time spent in patient care is 43 minutes.
Thank you for allowing us to participate in the care of this patient. We will continue to follow. Please do not hesitate to contact us with any questions or concerns
Objective Data
Vital Signs
Temp Pulse Resp BP Pulse Ox
36.7 C 74 12 110/73 96
05/14/24 07:17 05/14/24 07:17 05/14/24 07:17 05/14/24 07:17 05/14/24 07:17
Lab Results
05/14/24 05:55
05/14/24 05:55
PT 14.1 Sec (11.4-14.6) 05/11/24 16:29
INR 1.06 05/11/24 16:29
APTT 27.7 Sec (23.4-35.0) 05/12/24 04:07
Sodium 137 mmol/L (135-145) 05/14/24 05:55
Potassium 4.0 mmol/L (3.5-5.1) 05/14/24 05:55
BUN 18 mg/dl (9-20) 05/14/24 05:55
Glucose 100 mg/dl (70-99) H 05/14/24 05:55
Calcium 9.8 mg/dl (8.4-10.2) 05/14/24 05:55
Phosphorus 3.1 mg/dl (2.5-4.5) 05/11/24 13:23
Vitamin B12 591 pg/ml (622-931) 05/11/24 16:29
Patient Allergies
Sulfa (Sulfonamide Antibiotics) Allergy (Mild, Verified 05/11/24 11:54)
Rash
Vital Signs and Labs
-
Vital Signs and Labs:
Vital Signs
Temp Pulse Resp BP Pulse Ox
36.7 C 74 12 110/73 96
05/14/24 07:17 05/14/24 07:17 05/14/24 07:17 05/14/24 07:17 05/14/24 07:17
Lab Results
05/14/24 05:55
05/14/24 05:55
PT 14.1 Sec (11.4-14.6) 05/11/24 16:29
INR 1.06 05/11/24 16:29
APTT 27.7 Sec (23.4-35.0) 05/12/24 04:07
Sodium 137 mmol/L (135-145) 05/14/24 05:55
Potassium 4.0 mmol/L (3.5-5.1) 05/14/24 05:55
BUN 18 mg/dl (9-20) 05/14/24 05:55
Glucose 100 mg/dl (70-99) H 05/14/24 05:55
Calcium 9.8 mg/dl (8.4-10.2) 05/14/24 05:55
Phosphorus 3.1 mg/dl (2.5-4.5) 05/11/24 13:23
Vitamin B12 591 pg/ml (688-931) 05/11/24 16:29
Medications
-
Medications:
Generic Name Dose Route Start Last Admin
Trade Name Freq PRN Reason Stop Dose Admin
Acetaminophen 650 mg 05/11/24 22:03 05/13/24 17:28
Acetaminophen 325 Mg Tablet PO 06/08/24 22:02 650 mg
Q4HPRN PRN Administration
mild pain/VILLAGRAN/temp> 100.4F
Acetaminophen 650 mg 05/12/24 00:00 05/14/24 00:01
Acetaminophen 325 Mg Tablet PO 05/16/24 00:01 650 mg
DAILY@0000 JANET Administration
Alprazolam 6 mg 05/11/24 23:00 05/13/24 22:15
Alprazolam 1 Mg Tablet PO 06/08/24 22:59 6 mg
HS JANET Administration
Clonazepam 4 mg 05/12/24 22:00 05/13/24 22:15
Clonazepam 1 Mg Tablet PO 06/09/24 21:59 4 mg
HS JANET Administration
Diphenhydramine HCl 25 mg 05/12/24 00:00 05/14/24 00:01
Diphenhydramine 50 Mg/Ml 1 Ml Vial IV 05/16/24 00:01 25 mg
DAILY@0000 JANET Administration
Gabapentin 600 mg 05/11/24 23:00 05/14/24 08:56
Gabapentin 300 Mg Capsule PO 06/08/24 22:59 600 mg
TID JANET Administration
Heparin Sodium 5,000 units 05/11/24 22:03 05/14/24 08:55
Heparin 5,000 Units/Ml 1 Ml Vial SC 06/08/24 22:02 5,000 units
Q12 JANET Administration
Hydrochlorothiazide 12.5 mg 05/11/24 22:15 05/13/24 17:12
Hydrochlorothiazide 12.5 Mg Tablet PO 06/08/24 22:14 12.5 mg
QPM JANET Administration
Immune Globulin 30 grams in 300 mls @ 0 mls/hr 05/12/24 00:00 05/14/24 00:25
Gammagard IV 05/16/24 00:01 300 mls
DAILY@0000 JANET Administration
Protocol
Per Protocol
Finasteride [ 0 mg 05/12/24 17:30 05/14/24 08:56
Propecia] 1 Mg PO 06/09/24 17:29 1 mg
Tablet; 1 Tab Po DAILY JANET Administration
Daily
Dutasteride 0.5 Mg 0 unit 05/13/24 13:00 05/14/24 08:56
Po Daily PO 06/10/24 12:59 1 unit
DAILY JANET Administration
Minoxidil 2.5 Mg Po 0 unit 05/13/24 15:00 05/14/24 08:58
Daily PO 06/10/24 14:59 1 unit
DAILY JANET Administration
Sodium Chloride 0 flush 05/11/24 22:00
Sodium Chloride 0.9% (Flush) Syringe IV 06/08/24 21:59
PER PROTOCOL JANET
Zolpidem Tartrate 5 mg 05/11/24 22:13 05/12/24 21:09
Zolpidem Tartrate 5 Mg Tablet PO 06/08/24 22:12 5 mg
HSPRN PRN Administration
insomnia
Home Medications
-
Home Medications
alprazolam 2 mg tablet 6 mg PO HS PTSD 05/11/24
clonazepam 2 mg tablet 4 mg PO HS PTSD 05/11/24
cyanocobalamin (vitamin B-12) 1,000 mcg/mL injection solution 1,000 mcg IM MONTHLY Supplement 05/11/24
dutasteride 0.5 mg capsule 0.5 mg PO DAILY HAIR GROWTH 05/11/24
ergocalciferol (vitamin D2) 1,250 mcg (50,000 unit) capsule 2,500 mcg PO WEEKLY Supplement 05/11/24
eszopiclone 1 mg tablet 1 mg PO HSPRN PRN insomnia 05/11/24
finasteride 1 mg tablet (Propecia) 1 mg PO DAILY Hair growth 05/11/24
gabapentin 600 mg tablet 600 mg PO TID Mental Health/Anxiety 05/11/24
hydrochlorothiazide 12.5 mg capsule 12.5 mg PO QPM Blood Pressure 05/11/24
methylprednisolone 32 mg tablet 32 mg PO .TAPER weakness, rash 05/11/24
minoxidil 2.5 mg tablet 2.5 mg PO QPM Hair growth 05/11/24
--- NOTE | 2024-05-14 11:43 | W.PN.UPDATE ---
Update Note
Progress Note Update
Spoke to patient's mother. Answered all her questions. Explained that I recommend against transition of IVIG therapy to outpatient basis.
I have spent over 40 minutes on the phone with the patient and her mother answering patient's questions and listening to him. Mr. Somers endorsed dissatisfaction regarding the requested urine tox stating that he did not understand the reasons for
the above test.
Mr. Somers stated that that his first seizure occurred at age 14, and the most recent was in 2017. The patient has been prescribed Xanax , since age 14 for anxiety.
He admitted to taking 3 tablets of promethazine prior to finding himself on the floor on 05/09/2024.
Dr. Acosta
Neurology
--- NOTE | 2024-05-14 12:15 | PTCARENOTE ---
Patient refused morning medications and physical assessment. Pt states he will go home today.
--- NOTE | 2024-05-14 12:57 | CM ---
Addendum entered by Lily Marquis 05/14/24 14:32:
Patient and mother requested to talk to CM. CM spoke with both, they are requesting to talk to physician about outpatient IVIG treatments. CM sent request via tt. Both patient and mother indicated that patient wanted to be discharged but wanted
additional treatments. CM will continue to follow for discharge planning needs.
Original Note:
Patient seen at bedside. Patient sleepy but answered questions. Pending PM&R assessment and Psych also to follow patient per chart review. CM will continue to follow for discharge planning needs.
Plan; acute rehab
[2024-05-14 13:23] LABS: Varicella Zoster IgG (VZV) Positive
[2024-05-14 14:38] LABS: Creatine Phosphokinase 164 U/L (55-170)
[2024-05-14 15:07] VITALS: BP 137/97
[2024-05-14 15:16] VITALS: BP 137/97; PULSE 94; O2SAT 96
--- NOTE | 2024-05-14 16:49 | PTCARENOTE ---
Patient left hospital AMA. Dr. Saldivar, resident, and CM notified via TT. IV's removed. Patient refused to sign AMA form. Nursing cell efficiency supervisor notified via TT.
--- NOTE | 2024-05-14 16:50 | W.PN.UPDATE ---
Update Note
Progress Note Update
patient seen chart reviewed. discussed with nursing, dr tirado and patient's mother who was at bedside. i was asked to see this patient today as his demeanor had changed and he was according to the resident who had seen him not allowing the doctor to
do a physcial exam. later on during the day dr tirado asked me to see him as well not specifying why. 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 he has had mri's , lumbar puncture and eeg .so far
lp has not been definitive and many studies are outstanding. nor has mri of the brain or spine shown acute changes . eeg was normal. he has received so far three doses of igg and was due for the fourth this evening at midnight. i arrived as
patient's mother was discussing with nurse her irritation that dr tirado had not seen patient today. she said she and her son had been waiting all day to see him. he had apparently seen him early in the am while he was sleeping. the patient wanted
to leave and receive his infusions as an out pt. he and his mom explained why they were unhappy with dh. the patient last evening was irritated at the many transfers he felt he had endured (icu to imu to lp downstairs and then to the floor) he was
particularly incensed that in his first floor room he was with a patient who was coughing and he feared he would be infected. he then verbalized irritation with neuro who he alleges told him he would need another lp without explaining why. all of
these 'irritations ' made him determined to leave the hospital today. i explained to him that there were many reasons the igg infusion should be given in hospital (anaphyllaxis thrombosis etc etc0 and there is the reality that it is due at
midnight but he would not budge. i called dr tirado who had left the hospital and said he would not be coming back and the patient 's choice was to remain or sign out ama. i then returned to the patient's room and attempted again to persuade him to
stay pointing out the risks which include gbs returning even more severe than it had been but patient despite his mother's pleas would not hear it and insisted on leaving. he also could still be at risk for an adverse effect from that which he has
already received. he is aware of the risks and willing to take them. he is not psychotic. he is not depressed. nursing will present him with the ama form and he will sign it. patient does have a psychiatrist he sees and will continue w him as an
outpatient. he also has a pcp he will followup with.
--- NOTE | 2024-05-14 17:52 | W.PN.UPDATE ---
Update Note
Progress Note Update
Called patient to request him to come back to the hospital to complete the workup and IVIG infusions. Also discussed at length with the patient that we do not recommend IVIG at outpatient center. Even though he left AMA we are offered him to take
him back to complete the workup and management. I discussed the seriousness of his condition/symptoms with him. Earlier in the morning he only allowed me to do a minimal physical exam. He states during the morning rounds that he does not want to
talk and did not let me examine any further to what is documented in my note. He informed me that no other doctor besides a neurologist saw him in the hospital today and he waited more than 10 hours. Upon informing him that I came in to see him in
the morning and my attending Dr. Saldivar also saw him. He refused to admit that.
On multiple instances he mentioned that he was not happy with the person who took him on a wheelchair from ICU to third floor. Also he was not happy with the other person/patient in the room on the floor. He said he wanted a private room. I
informed him that we can only recommend placement in different units on the basis of evaluation of medical needs. There are people employed by the hospital who transfer patients from 1 floor/unit to another. They are not picked by the hospital
medicine team or any other medical speciality. Room allotment is also something not controlled by the hospital medicine team. He states ' if that is the case why are you running the hospital'.
He stated that he is not happy with the care that he received at the hospital. Even though per neurology note they spent more than 40 minutes with the patient and his mother, he informed me with his dissatisfaction with neurology as they did not
spend adequate time and provided him with enough information.
I tried to explain multiple times to the patient his medical condition and our concerns, he interrupted me several times and did not let me discuss his medical condition and continues to talk about bed allotment and regarding the person who took him
on a wheelchair from 1 floor to another.
After discussing the same question and answer multiple times, I informed him that I will request my attending Dr. Saldivar to give him a call as well to answer further questions.
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
[2024-05-15 12:58] LABS: Albumin 4.07 g/dL (3.75-5.01); Alpha 1 Globulin 0.47 g/dL (0.19-0.46); Alpha 2 Globulin 0.92 g/dL (0.48-1.05); SPEP IFE Reflex Not Done
[2024-05-15 16:26] LABS: Vitamin B1, Whole Blood 136 nmol/L (70-180)
[2024-05-15 16:38] LABS: ANA, HEp-2, IgG <1:80 (<1:80)
[2024-05-15 18:37] LABS: Myelin Basic Protein, CSF 2.74 ng/mL (0.00-5.50)
[2024-05-16 02:58] LABS: C.neoformans Antigen Negative (Negative)
== END 2024-05-14 17:00 | disposition left against medical advice (07) | DRG 95 ==
LOC: 3 WEST ACU 17:42
PROVIDERS: Clinical Nurse Specialist Family Health; Physician Assistant; Radiology Vascular & Interventional Radiology; ADMITTING PHYSICIAN Internal Medicine; ATTENDING PHYSICIAN Internal Medicine; CONSULT PHYSICIAN Internal Medicine; CONSULT PHYSICIAN Psychiatry & Neurology Neurology; CONSULT PHYSICIAN Psychiatry & Neurology Psychiatry; EMERGENCY PHYSICIAN Student in an Organized Health Care Education/Training Program; FAMILY PHYSICIAN Internal Medicine
PROC: 30233S1 Transfusion of Nonautologous Globulin into Peripheral Vein, Percutaneous Approach (ICD-10-PCS; 2024-05-12)
PROC: B01B1ZZ Fluoroscopy of Spinal Cord using Low Osmolar Contrast (ICD-10-PCS; 2024-05-13)
PROC: 009U3ZX Drainage of Spinal Canal, Percutaneous Approach, Diagnostic (ICD-10-PCS; 2024-05-13)
DX: G61.0 Guillain-Barre syndrome (principal); F13.20 Sedative, hypnotic or anxiolytic dependence, uncomplicated; G83.11 Monoplegia of lower limb affecting right dominant side; R53.1 Weakness; F41.9 Anxiety disorder, unspecified; I10 Essential (primary) hypertension; R11.10 Vomiting, unspecified; R55 Syncope and collapse; R21 Rash and other nonspecific skin eruption; F43.10 Post-traumatic stress disorder, unspecified; E53.8 Deficiency of other specified B group vitamins; R49.0 Dysphonia; G90.9 Disorder of the autonomic nervous system, unspecified; N40.0 Benign prostatic hyperplasia without lower urinary tract symptoms; G47.00 Insomnia, unspecified; R79.82 Elevated C-reactive protein (CRP); F40.10 Social phobia, unspecified; D72.829 Elevated white blood cell count, unspecified; W18.39XA Other fall on same level, initial encounter; Y93.89 Activity, other specified; Y92.000 Kitchen of unspecified non-institutional (private) residence as the place of occurrence of the external cause; Z56.0 Unemployment, unspecified; Z88.2 Allergy status to sulfonamides; Z87.01 Personal history of pneumonia (recurrent)
CPT/HCPCS: 62328; 70551; 71045; 72156; 72157; 72158; 80053; 82040; 82042; 82164; 82550; 82607; 82784; 82945; 83735; 83873; 83916; 83970; 84100; 84155; 84157; 84165; 84425; 84439; 84443; 85025; 85610; 85652; 85730; 86038; 86039; 86140; 86705; 86706; 86780; 86787; 86803; 87015; 87070; 87205; 87327; 87340; 87389; 87476; 87483; 89051; 93005; 95816; 97116; 97163; 97167; 97535; 99152; 99153; 99285; A9575; J1569

== ENCOUNTER 2024-05-14 21:57 | Inpatient (IN) | payer OTHER, SELFPAY ==
[2024-05-14 20:24] VITALS: BP 133/98
--- NOTE | 2024-05-14 20:43 | ED.GENMED ---
History of Present Illness
General
Chief Complaint: Abnormal Lab Value
Source: patient, records, family and previous hospital records
Exam Limitations: none
Time Seen by Provider: 05/14/24 20:33
Nursing documentation reviewed up to this point in time: agreed with
History of Present Illness
History of Present Illness:
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
IVIG was noticed weakness of his right lower extremity, also the rash on his head, his PTSD is on numerous meds accompanied by his mother and father patient has a remaining foot drop on the right
Past History
Past History
ED Past Medical History: Other (PTSD, Guillain-Corral�)
Social History
Living: with family
Review of Systems
Review of Systems
All Other Systems: Not applicable
Neurological: Reports weakness and numbness
Psychiatric: Reports anxiety
Phy Exam
Physical Exam
Physical Exam:
Physical Exam
General: no apparent distress, not acutely ill
Neck: Healing eschar on his forehead
Heart: s1/s2 regular rate and rhythm, no murmur. equal radial pulses.
Lungs: no acute respiratory distress. clear bilaterally
Neuro: alert and oriented. Able to lift his arms and legs off the bed
Skin: no rash
Psychiatric: well kept. interactive and cooperative
Extremities: no edema
Course
Vital Signs
Initial and Last Documented VS:
Initial Vital Signs
Temp Pulse Resp BP Pulse Ox
97.9 F 94 18 133/98 97
05/14/24 20:24 05/14/24 20:24 05/14/24 20:24 05/14/24 20:24 05/14/24 20:24
Last Documented Vital Signs
Temp Pulse Resp BP Pulse Ox
97.9 F 94 18 133/98 97
05/14/24 20:24 05/14/24 20:24 05/14/24 20:24 05/14/24 20:24 05/14/24 20:24
MDM/Problems Addressed
Differential Diagnosis Includes:
gb, anxiety ptsd
Chronic conditions affecting care: Neurological disorder and Psychiatric illness
Acute Exacerbation and/or Progression of Chronic Illness: Neurological disorder and Psychiatric illness
*Critical Care Note
Total Time (30-74mins, 75-104mins- exclusive of procedures): Not Applicable
ED Attending Note
-
Portions of this chart may have been created with voice recognition software.� Occasional wrong word or��sound alike� substitutions may have occurred due to the inherent limitations of voice recognition software.
Discharge Plan
Departure
Patient Disposition: Admit
Date of Disposition: 05/14/24
Time of Disposition: 20:49
Admit to: Med/Surg
Presentation/result/management discussed w/ accepting MD/DO: Hospitalist
Patient with high blood pressure during this ER visit?: No
Condition: Fair
Discharge Problem:
Paralysis of right lower extremity, Post traumatic stress disorder (PTSD), Rash of face
Prescriptions:
No Action
gabapentin 600 mg tablet
600 mg PO TID
methylprednisolone 32 mg Tablet
32 mg PO .TAPER
minoxidil 2.5 mg tablet
2.5 mg PO QPM
cyanocobalamin (vitamin B-12) 1,000 mcg/mL solution
1,000 mcg IM MONTHLY
clonazepam 2 mg tablet
4 mg PO HS
Patient Comments:
05/11/24: per patient, takes full daily dose in the evening
hydrochlorothiazide 12.5 mg capsule
12.5 mg PO QPM
alprazolam 2 mg tablet
6 mg PO HS
Patient Comments:
05/11/24: per patient, takes full daily dose at bedtime
ergocalciferol (vitamin D2) 1,250 mcg (50,000 unit) capsule
2,500 mcg PO WEEKLY
finasteride [Propecia] 1 mg tablet
1 mg PO DAILY
dutasteride 0.5 mg capsule
0.5 mg PO DAILY
eszopiclone 1 mg tablet
1 mg PO HSPRN PRN (Reason: insomnia)
Discharge Date and Time
Print Language: YI
[2024-05-14 20:44] VITALS: BP 137/87
[2024-05-14 21:00] VITALS: BP 128/88
--- NOTE | 2024-05-14 21:11 | HPS.HSE ---
Family Physician
-
Family Physician: Alayna Garcia
Chief Complaint
-
LE Weakness
History of Present Illness
Patient is a 38y M with PMH significant for PTSD who presents to ED complaining of RLE weakness. Patient was admitted to from 05/11 - 05/14 for LE weakness, sensory deficits, etc. Please see H&P / notes from that admission for details of initial
presentation, evaluation and treatment. Patient was prescribed a course of IVIG x 5 days for suspected GBS. Patient elected to sign out AMA on 05/14/24. He was subsequently contacted by Hospitalist staff and convinced to return to the hospital to
complete his treatment.
In the ED, patient complains of persistent R foot drop and sensory deficits of the RLE (mostly laterally).
He denies any new complaints.
Medical History
Past Medical History
Past Medical History: Reports Other
Additional Past Medical History:
PTSD / Generalized Anxiety
Hypertension
BPH
Insomnia
Past Surgical History: Reports Other
Additional Past Surgical History:
Rhinoplasty
Chin Implant
Social History
Tobacco: Non-smoker
Alcohol: None
Drug: None
Personal: Single
Living: With Family (Mother)
Employment: Not Employed
Family History
Family History: Not pertinent
Allergies / Home Medications
Allergies reflects when Allergies were last updated in [employer].
Home Medications with original date entered in [facility]
Allergy/Medication List:
Allergies
Allergy/AdvReac Type Severity Reaction Status Date / Time
Sulfa (Sulfonamide Allergy Mild Rash Verified 05/11/24 11:54
Antibiotics)
Home Medications
alprazolam 2 mg tablet 6 mg PO HS PTSD 05/11/24
clonazepam 2 mg tablet 4 mg PO HS PTSD 05/11/24
cyanocobalamin (vitamin B-12) 1,000 mcg/mL injection solution 1,000 mcg IM MONTHLY Supplement 05/11/24
dutasteride 0.5 mg capsule 0.5 mg PO DAILY HAIR GROWTH 05/11/24
ergocalciferol (vitamin D2) 1,250 mcg (50,000 unit) capsule 2,500 mcg PO WEEKLY Supplement 05/11/24
eszopiclone 1 mg tablet 1 mg PO HSPRN PRN insomnia 05/11/24
finasteride 1 mg tablet (Propecia) 1 mg PO DAILY Hair growth 05/11/24
gabapentin 600 mg tablet 600 mg PO TID Mental Health/Anxiety 05/11/24
hydrochlorothiazide 12.5 mg capsule 12.5 mg PO QPM Blood Pressure 05/11/24
methylprednisolone 32 mg tablet 32 mg PO .TAPER weakness, rash 05/11/24
minoxidil 2.5 mg tablet 2.5 mg PO QPM Hair growth 05/11/24
Review of Systems
-
History Source: Patient
A 12 point ROS was completed and negative except as noted: Yes
Constitutional: Reports Fatigue; Denies Fever or Chills
Respiratory: Denies Cough or Trouble Breathing
Cardiac: Denies Chest Pain or Palpitations
Abdomen/GI: Denies Abdominal Pain, Nausea, Vomiting or Diarrhea
: Denies Dysuria or Frequency
Musculoskeletal: Denies Joint Pain or Edema
Skin: Reports Other (Crusted facial rash); Denies Itching
Neurological: Reports Weakness and Numbness; Denies Dizzy or Headache
Physical Exam
Vital Signs
Vital Signs
Temp Pulse Resp BP Pulse Ox
97.9 F 94 18 133/98 97
05/14/24 20:24 05/14/24 20:24 05/14/24 20:24 05/14/24 20:24 05/14/24 20:24
Physical Exam
General: Other (38y M in no acute distress.)
HEENT: Moist mucous membranes
Respiratory: Clear; No Wheezes, Rales or Rhonchi
Cardiac: S1/S2 and Regular Rhythm; No Murmur
GI: Soft, Non Tender, Non Distended and Normal Bowel Sounds
Musculoskeletal: No Clubbing, No Cyanosis and No Edema
Skin: Other (Crusted area middle of the forehead along the nose.)
Neuro: AO x 3 and Other (Absent dorsiflexion of the R ankle / foot drop. Decreased sensation RLE below the knee - lateral > medial. Strength and sensation seem intact on the LLE.)
Impression/Plan
-
A/P: Patient is a 38y M with PMH significant for PTSD who presents to ED to resume therapy for LE weakness.
Bilateral LE Weakness
Facial Rash
- Admit for continued therapy.
- Resume IVIG (next dose due @ 00:25) x 2 more doses.
- Neurology evaluation / resume follow-up.
- Follow for changes in neurologic exam.
- Extensive work-up to date reviewed and - thus far - has been unremarkable.
PTSD
Generalized Anxiety
- Continue usual home medication regimen without changes.
- Evaluated by Psychiatry during recent admission - no acute psychosis, etc.
Benign Hypertension
- Stable. Continue usual home medications.
DVT Prophylaxis: Subcut Heparin
Code Status: Full
[2024-05-14 21:40] LABS: % Basophils 0.5 % (0-2); % Eosinophils 2.7 % (0-6); % Immature Granulocytes 0.7 % (0-0.5); % Lymphocytes 37.6 % (20.5-51.1); % Monocytes 5.9 % (1.7-9.3); % Neutrophils 52.6 % (42.2-75.2); Absolute Eosinophils 0.2 10^3/uL (0-0.7); Absolute Immature Granulocytes 0.1 10^3/uL (0-0.05); Absolute Monocytes 0.5 10^3/uL (0.1-0.6); Absolute Neutrophils 4.2 10^3/uL (1.4-6.5); Hematocrit 37.6 % (39.0-52.0); Hemoglobin 12.6 g/dL (13.0-18.0); Mean Corp Hgb Conc. 33.5 g/dL (33.0-37.0); Mean Corpuscular Hgb 29.2 pg (27.0-31.0); Mean Corpuscular Volume 87.2 fL (80.0-94.0); Mean Platelet Volume 7.9 fL (7.4-10.4); Nucleated Red Blood Cells % 0 % (-); Platelet Count 304 10^3/uL (130-400); Red Blood Cell Count 4.31 10^6/uL (4.70-6.10); Red Cell Dist. Width 12.3 % (11.5-14.5); White Blood Cell Count 8.1 10^3/uL (4.8-10.8)
[2024-05-14 21:47] LABS: Erythrocyte Sed Rate 43 mm/hour (0-20)
[2024-05-14 21:59] LABS: ALT (SGPT) 36 U/L (0-50); AST (SGOT) 45 U/L (17-59); Albumin 4.5 g/dl (3.5-5.0); Alkaline Phosphatase 62 U/L (38-126); Blood Urea Nitrogen 17 mg/dl (9-20); Calcium 10.1 mg/dl (8.4-10.2); Carbon Dioxide 27 mmol/L (22-30); Chloride 98 mmol/L (98-107); Glucose 80 mg/dl (70-99); Potassium 3.7 mmol/L (3.5-5.1); Sodium 135 mmol/L (135-145); Total Bilirubin 0.7 mg/dl (0.2-1.3); Total Protein 8.7 g/dl (6.3-8.2); eGFR > 60.00
[2024-05-14 22:00] VITALS: BP 118/85
[2024-05-14] MEDS: KLONOPIN 4 MG PO (22:07)
[2024-05-14] MEDS: XANAX 6 MG PO (22:08)
[2024-05-14] MEDS: AMBIEN 5 MG PO (22:08)
[2024-05-14] MEDS: NEURONTIN 600 MG PO (23:44)
[2024-05-15] VITALS (12 sets, daily range): BP systolic 93–138; BP diastolic 60–98; PULSE 101; O2SAT 98; BMI 19.4
[2024-05-15] MEDS: GAMMAGARD 300 IV (01:05)
--- NOTE | 2024-05-15 07:21 | W.PN.HOSP.TC ---
Today's Communication/Plan
-
Continue IVIG
Follow-up on pending labs
Assessment / Plan
Assessment / Plan
MRI brain: On sagittal T1-weighted images, 4 mm rounded prominence of increased T1-weighted signal in the region of the infundibulum with loss of degenerative visualization of the posterior pituitary gland within the sella. This could represent
ectopic posterior pituitary gland, versus slight prominence of the infundibulum as normal variation. As warranted, consider further evaluation with additional thin section imaging through the pituitary gland. No other significant MR finding within
the brain.
MRI C-spine: No MRI evidence for an acute abnormality of the cervical spine.
MRI T-spine: Within the visualized lungs, patchy areas of parenchymal opacity/signal bilaterally, there appears to be greater involvement of the right lung when compared to the left. Findings raise suspicion for pneumonia, although chronic
parenchymal disease is also possible. Consider further evaluation with chest radiograph initially. Normal morphology and signal intensity of the cervical and thoracic spinal cord. Conus medullaris appears within normal limits. No evidence for
abnormal enhancement of the spinal cord. No evidence for abnormal enhancement of the visualized nerve roots within the superior aspect of the cauda equina.
MRI L-spine: No MRI evidence for an acute abnormality of the lumbar spine. Moderate left and mild right neuroforaminal stenosis at L5-S1 secondary to a disc bulge and facet arthrosis.
EEG: This is a normal awake and drowsy EEG. There is no evidence of focal slowing or epileptiform activity. A normal EEG does not rule out epilepsy. If the clinical picture warrants, a sleep-deprived awake and sleep record may be helpful.
#B/L LE weakness, R>L:
-concern for GBS
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 Function returned to left side, has had persistent weakness to RLE (has been using cane)
-took prednisone 32mg(from father)
-recent vaccination history noted in H&P, reportedly he received Prevnar and COVID-vaccine in April 2024 and flu vaccine 3 days prior to coming to the
-MRI brain and c/T/L-spine above, unremarkable for acute neurological findings
-ESR 27, CRP 146, JOSE +
-cont IVIG x 4/5 days
-s/p LP with IR; csf studies pending
-s/p normal EEG with neuro
-Lyme, Vit B1 pending
-Syphilis, hepatitis panel, HIV ; negative
# leukocytosis
-Resolved
# Rash on face; unclear
-Dermatology not available
#Essential hypertension
-Cont HCTZ/minoxidil
#PTSD/Anxiety
-cont home Xanax/Klonopin.
-Psych reconsulted; patient does not want to talk and have a flat affect today.
#BPH
-cont Proscar
#B12 deficiency
-B12 normal
Full code
DVT ppx: heparin
Patient's mother updated.
Potential discharge tomorrow 05/16/2024 after last dose of IVIG
Anticipated Discharge: Within 24 hours
Subjective/Interval History
-
Date of Service: May 15, 2024
AFVSS. Offers no new complaints. Continues to have right lower leg weakness overall improved
Objective Data
-
Labs:
Laboratory Results
05/14/24 05/15/24
21:32 07:07
WBC 8.1 Pending
Hgb 12.6 L Pending
Hct 37.6 L Pending
Plt Count 304 Pending
Sodium 135 Pending
Potassium 3.7 Pending
Chloride 98 Pending
Carbon Dioxide 27 Pending
BUN 17 Pending
Creatinine 0.7 Pending
Glucose 80 Pending
Calcium 10.1 Pending
Total Bilirubin 0.7
AST 45
ALT 36
Alkaline Phosphatase 62
Vital Signs:
Vital Signs
Temp Pulse Resp BP Pulse Ox
97.9 F 81 16 112/68 99
05/15/24 01:14 05/15/24 04:29 05/15/24 01:14 05/15/24 04:29 05/15/24 01:14
I&O
05/14/24 05/15/24 05/16/24
06:59 06:59 06:59
Intake Total 200 / 200
Balance 200 / 200
Review of Systems
-
History Source: Patient
Constitutional: Reports No Symptoms
EENT: Reports No Symptoms Reported
Respiratory: Reports No Symptoms
Cardiac: Reports No Symptoms
Abdomen/GI: Reports No Symptoms
Musculoskeletal: Reports Muscle Weakness (Right leg)
Neuro: Reports Weakness (Right lower leg)
Physical Exam
-
General: Well Nourished and No Apparent Distress
HEENT: Normocephalic and Atraumatic
Respiratory: Clear to Auscultation
Cardiac: Regular Rhythm and S1/S2
GI: Soft, Nontender and Nondistended
Skin: Warm, Dry and Rash (Light brown nonitchy flat; lower middle forehead and nasal bridge)
Neuro: Awake, Alert, Oriented and Other (right dorsiflexion 0/5, left dorsiflexion5/5, right planter flexion 5/5, left planter flexion 5/5, decreased sensation to light touch in lateral right lower leg below knee)
Psych: Other (Very talkative)
Data Reviewed
-
Labs: Labs Reviewed by me, Discussed with Physician and Discussed with Patient
--- NOTE | 2024-05-15 07:49 | W.PN.UPDATE ---
Update Note
Progress Note Update
I saw and evaluated the patient. I reviewed the resident�s note and agree with findings and plan as documented in the resident�s note.
Gen: NAD, AAOx3.
Eyes: EOMI, PERRLA, no scleral icterus.
Neck: supple.
CV: RRR, +S1/S2, no m/r/g.
Resp: CTAB, no rales, wheezes, or rhonchi.
Abd: +BS, soft, NT, ND
Skin: No LE edema, rash on forehead/nasal bridge
Neuro: CN 2-12 intact, RLE with 0/5 dorsiflexion, otherwise RLE 5/5
Psych: Normal mood and affect.
MRI brain: On sagittal T1-weighted images, 4 mm rounded prominence of increased T1-weighted signal in the region of the infundibulum with loss of degenerative visualization of the posterior pituitary gland within the sella. This could represent
ectopic posterior pituitary gland, versus slight prominence of the infundibulum as normal variation. As warranted, consider further evaluation with additional thin section imaging through the pituitary gland. No other significant MR finding within
the brain.
MRI C-spine: No MRI evidence for an acute abnormality of the cervical spine.
MRI T-spine: Within the visualized lungs, patchy areas of parenchymal opacity/signal bilaterally, there appears to be greater involvement of the right lung when compared to the left. Findings raise suspicion for pneumonia, although chronic
parenchymal disease is also possible. Consider further evaluation with chest radiograph initially. Normal morphology and signal intensity of the cervical and thoracic spinal cord. Conus medullaris appears within normal limits. No evidence for
abnormal enhancement of the spinal cord. No evidence for abnormal enhancement of the visualized nerve roots within the superior aspect of the cauda equina.
MRI L-spine: No MRI evidence for an acute abnormality of the lumbar spine. Moderate left and mild right neuroforaminal stenosis at L5-S1 secondary to a disc bulge and facet arthrosis.
EEG: This is a normal awake and drowsy EEG. There is no evidence of focal slowing or epileptiform activity. A normal EEG does not rule out epilepsy. If the clinical picture warrants, a sleep-deprived awake and sleep record may be helpful.
B/L LE weakness, R>L:
-concern for GBS
-fell 3 day prior to initial admission, was unable to move both legs at that time. Function returned to left side, then had persistent weakness to RLE (had been using cane)
-took prednisone 32mg
-recent vaccination history noted in 05/11/24 H&P, most recent vaccines 04/21/24
-MRI brain, C/T/L-spine above, unremarkable for acute neurological findings
-EEG unremarkable as above
-ESR 27, CRP 146
-cont IVIG x 5 days (has one more dose after midnight tonight)
-s/p LP 05/13/24, multiple CSF studies pending, acute meningitis PCR NEG
-Normal studies: GIOVANY, HIV, acute hepatitis panel, syphilis
-JOSE POS
-NCS/EMG in 3 weeks
-neuro following
Other problems:
Essential HTN: cont HCTZ/minoxidil
PTSD/Anxiety: cont home Xanax/Klonopin. Psych saw during prior admission.
BPH: cont Proscar
B12 deficiency: B12 normal
Patient's mother updated at bedside.
FULL/heparin
Dispo: plan for d/c 05/16/24 after final dose IVIG
[2024-05-15 08:24] LABS: Mean Corp Hgb Conc. 34.3 g/dL (33.0-37.0); Mean Corpuscular Hgb 29.7 pg (27.0-31.0); Mean Corpuscular Volume 86.6 fL (80.0-94.0); Platelet Count 301 10^3/uL (130-400); Red Blood Cell Count 4.04 10^6/uL (4.70-6.10); Red Cell Dist. Width 12.3 % (11.5-14.5); White Blood Cell Count 6.1 10^3/uL (4.8-10.8)
[2024-05-15 08:55] LABS: Blood Urea Nitrogen 22 mg/dl (9-20); Calcium 9.6 mg/dl (8.4-10.2); Carbon Dioxide 34 mmol/L (22-30); Chloride 100 mmol/L (98-107); Estimated Creatinine Clearance 98 ml/min; Glucose 110 mg/dl (70-99); Potassium 3.7 mmol/L (3.5-5.1); Sodium 139 mmol/L (135-145); eGFR > 60.00
[2024-05-15] MEDS: NEURONTIN 600 MG PO ×3 (09:23→21:20)
[2024-05-15] MEDS: HEPARIN 5000 UNITS SC ×2 (09:23→20:25)
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
--- NOTE | 2024-05-15 15:57 | CM ---
loan manager reviewed patient's chart and met with patient and patient left AMA yesterday. Patient was came back to finish his IVIG. Tyler lives with his mother in a split level home, patient is independent with adl's and uses a cane with
ambulation.
PCP: Alayna Garcia
Pharmacy: [facility]
[2024-05-15] MEDS: ORETIC 12.5 MG PO (17:00)
[2024-05-15] MEDS: XANAX 6 MG PO (21:19)
[2024-05-15] MEDS: KLONOPIN 4 MG PO (21:19)
[2024-05-15] MEDS: AMBIEN 5 MG PO (21:20)
[2024-05-15] MEDS: TYLENOL 650 MG PO (23:27)
[2024-05-16] VITALS (9 sets, daily range): BP systolic 106–127; BP diastolic 72–87
[2024-05-16] MEDS: GAMMAGARD 300 IV (00:02)
[2024-05-16 06:46] LABS: Hematocrit 34.6 % (39.0-52.0); Mean Corp Hgb Conc. 34.7 g/dL (33.0-37.0); Mean Corpuscular Hgb 29.8 pg (27.0-31.0); Mean Corpuscular Volume 85.9 fL (80.0-94.0); Mean Platelet Volume 7.9 fL (7.4-10.4); Platelet Count 257 10^3/uL (130-400); Red Blood Cell Count 4.03 10^6/uL (4.70-6.10); Red Cell Dist. Width 12.6 % (11.5-14.5); White Blood Cell Count 8.3 10^3/uL (4.8-10.8)
[2024-05-16 07:10] LABS: Blood Urea Nitrogen 18 mg/dl (9-20); Calcium 9.6 mg/dl (8.4-10.2); Carbon Dioxide 29 mmol/L (22-30); Chloride 100 mmol/L (98-107); Estimated Creatinine Clearance 122 ml/min; Glucose 102 mg/dl (70-99); Sodium 135 mmol/L (135-145); eGFR > 60.00
--- NOTE | 2024-05-16 07:21 | W.PN.HOSP.TC ---
Addendum entered and electronically signed by Bishop Reyna MD 05/16/24 15:11:
I saw and evaluated the patient. I reviewed the resident�s note and agree with findings and plan as documented in the resident�s note except for changes in my documentation
Addendum entered and electronically signed by Bishop Reyna MD 05/16/24 15:08:
38-year-old male was on the floor covered with vomiting. He also had difficulty with his legs being weak.
MRI brain 4 mm rounded prominence of increased T1-weighted signal in the region of infundibulum with loss of degenerative visualization of the posterior pituitary gland within the sella could represent ectopic posterior pituitary gland versus slight
prominence of the infundibulum as normal variation.
MRI of the C-spine-no evidence of acute abnormality
MRI of the T-spine patchy areas of parenchymal opacity/signal bilaterally Findings raise suspicion for pneumonia, although chronic parenchymal disease is also possible. Consider further evaluation with chest radiograph initially. Normal morphology
and signal intensity of the cervical and thoracic spinal cord. Conus medullaris appears within normal limits. No evidence for abnormal enhancement of the spinal cord. No evidence for abnormal enhancement of the visualized nerve roots within the
superior aspect of the cauda equina.
MRI L-spine: No MRI evidence for an acute abnormality of the lumbar spine. Moderate left and mild right neuroforaminal stenosis at L5-S1 secondary to a disc bulge and facet arthrosis.
EEG: This is a normal awake and drowsy EEG. There is no evidence of focal slowing or epileptiform activity. A normal EEG does not rule out epilepsy. If the clinical picture warrants, a sleep-deprived awake and sleep record may be helpful.
Pleasant awake alert
Rash on the bridge of the nose extending in between eyebrows extending to the forehead to the right just above the right eyebrow.. Rash looks mostly desquamating at this point almost. No redness or discharge. Patient did not want me to touch it.
Cardiovascular system S1-S2 appreciated
Chest clear to auscultation
Abdomen soft and nontender
Good strength bilateral upper extremities 5 x 5
Left lower extremity good strength 4+ by 5, sensations good
Right foot drop, sensory deficit noted right lateral leg just above the ankle right dorsal foot. He can feel the toes
Bilateral knee reflexes present
# Bilateral lower extremity weakness right more than left
Concern for GBS
Patient also had a fall 3 days prior to initial admission function returned on the left side but had weakness on the right side has been using a cane
Took prednisone prior to coming in
Vaccination for influenza as outpatient
Status post IVIG 5 days
Lumbar puncture done with CSF studies pending. Acute meningitis PCR negative
GIOVANY level, HIV, hepatitis panel and RPR negative
JOSE positive
Patient needs EMG nerve conduction study as outpatient-discussed
# Parenchymal opacities-chest x-ray and MRI. Improved on the MRI suggesting these are atelectasis areas. Repeat chest x-ray in 1 week as outpatient. Patient denies any cough shortness of breath or any chest symptoms. Chest exam is clear to
auscultation. Clinically no suspicion for pneumonia
# Rash-surgery was consulted patient was not interested in the biopsy of the face. He should follow-up with PCP and dermatology for further workup on this. No interior systems carpenter is on-call per schedule today. Discussed about the importance of
following up with dermatology as outpatient.
# Hypertension-continue minoxidil hydrochlorothiazide
# PTSD/anxiety-continue Xanax and Klonopin. Cut back as outpatient if possible
# B12 deficiency by history-B2 levels normal
# Full code
# DVT prophylaxis-subcutaneous heparin
Discussed with nursing at bedside
Discussed with patient's mom at bedside
Follow up recommended
Prescription for outpatient PT OT with correspondence to primary will be given to the patient at discharge. Restrictions of driving discussed
Patient was very thankful and appreciative.
D/W Neuro - OK for discharge
More than 30 minutes spent in discharge including
Final examination of the patient
Summarizing hospital stay
Instructions for continuing care to all relevant caregivers
Preparation of discharge records, prescriptions, and referral forms
Total time spent (in minutes): 45 min
Original Note:
Today's Communication/Plan
-
Patient remained adamant for discharge today; okay for discharge per neurology
Recommend follow-up with outpatient neurology to review the pending workup
PT/OT
No driving until cleared by neurology
Assessment / Plan
Assessment / Plan
MRI brain: On sagittal T1-weighted images, 4 mm rounded prominence of increased T1-weighted signal in the region of the infundibulum with loss of degenerative visualization of the posterior pituitary gland within the sella. This could represent
ectopic posterior pituitary gland, versus slight prominence of the infundibulum as normal variation. As warranted, consider further evaluation with additional thin section imaging through the pituitary gland. No other significant MR finding within
the brain.
MRI C-spine: No MRI evidence for an acute abnormality of the cervical spine.
MRI T-spine: Within the visualized lungs, patchy areas of parenchymal opacity/signal bilaterally, there appears to be greater involvement of the right lung when compared to the left. Findings raise suspicion for pneumonia, although chronic
parenchymal disease is also possible. Consider further evaluation with chest radiograph initially. Normal morphology and signal intensity of the cervical and thoracic spinal cord. Conus medullaris appears within normal limits. No evidence for
abnormal enhancement of the spinal cord. No evidence for abnormal enhancement of the visualized nerve roots within the superior aspect of the cauda equina.
MRI L-spine: No MRI evidence for an acute abnormality of the lumbar spine. Moderate left and mild right neuroforaminal stenosis at L5-S1 secondary to a disc bulge and facet arthrosis.
EEG: This is a normal awake and drowsy EEG. There is no evidence of focal slowing or epileptiform activity. A normal EEG does not rule out epilepsy. If the clinical picture warrants, a sleep-deprived awake and sleep record may be helpful.
#B/L LE weakness, R>L:
-concern for GBS
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 Function returned to left side, has had persistent weakness to RLE (has been using cane)
-took prednisone 32mg(from father)
-recent vaccination history noted in H&P, reportedly he received Prevnar and COVID-vaccine in April 2024 and flu vaccine 3 days prior to coming to the
-MRI brain and c/T/L-spine above, unremarkable for acute neurological findings
-ESR 27, CRP 146, JOSE +
-Completed IVIG x 5/5 days
-s/p LP with IR; csf studies pending
-s/p normal EEG with neuro
-Lyme pending
-Vit B1. Multiple sclerosis panel pending
-Syphilis, hepatitis panel, HIV ; negative
-Overall patient's sensation returning and there is significant improvement since yesterday.
-Cleared for discharge per neurology ;recommend to follow-up with outpatient neurology to review the pending workup and for any additional workup
# leukocytosis
-Resolved
# Rash on face; unclear
-Dermatology not available
-Recommend patient to follow-up with outpatient dermatology for potential skin biopsy
#Essential hypertension
-Cont HCTZ/minoxidil
#PTSD/Anxiety
-cont home Xanax/Klonopin.
-Psych reconsulted; patient does not want to talk and have a flat affect today.
#BPH
-cont Proscar
#B12 deficiency
-B12 normal
Full code
DVT ppx: heparin
Patient's mother updated.
Potential discharge tomorrow 05/16/2024 after last dose of IVIG
Anticipated Discharge: Today
Subjective/Interval History
-
Date of Service: May 16, 2024
AFVSS. Patient states he feels fine and would like to go home. He further added that if he is not discharged by 9 AM he would leave AMA.
Objective Data
-
Labs:
Laboratory Results
05/16/24
06:38
WBC 8.3
Hgb 12.0 L
Hct 34.6 L
Plt Count 257
Sodium 135
Potassium 4.0
Chloride 100
Carbon Dioxide 29
BUN 18
Creatinine 0.8
Glucose 102 H
Calcium 9.6
Vital Signs:
Vital Signs
Temp Pulse Resp BP Pulse Ox
97.7 F 74 16 110/74 97
05/15/24 23:00 05/16/24 03:05 05/15/24 23:00 05/16/24 03:05 05/15/24 23:00
I&O
05/15/24 05/16/24 05/17/24
06:59 06:59 07:59
Intake Total 200 / 200 960 / 1440 480 / 480
Balance 200 / 200 960 / 1440 480 / 480
Review of Systems
-
History Source: Patient
Constitutional: Reports No Symptoms
EENT: Reports No Symptoms Reported
Respiratory: Reports No Symptoms
Cardiac: Reports No Symptoms
Abdomen/GI: Reports No Symptoms
Musculoskeletal: Reports Muscle Weakness (Right leg)
Neuro: Reports Weakness (Right lower leg)
Physical Exam
-
General: Well Nourished and No Apparent Distress
HEENT: Normocephalic and Atraumatic
Respiratory: Clear to Auscultation
Cardiac: Regular Rhythm and S1/S2
GI: Soft, Nontender and Nondistended
Skin: Warm, Dry and Rash (Light brown nonitchy flat; lower middle forehead and nasal bridge)
Neuro: Awake, Alert, Oriented and Other (right dorsiflexion 0/5, left dorsiflexion5/5, right planter flexion 5/5, left planter flexion 5/5, decreased sensation to light touch in distal lateral right leg below knee)
Psych: Other (talkative)
Data Reviewed
-
Labs: Labs Reviewed by me, Discussed with Physician and Discussed with Patient
[2024-05-16] MEDS: HEPARIN SC (08:37)
[2024-05-16] MEDS: NEURONTIN 600 MG PO (08:37)
--- NOTE | 2024-05-16 10:15 | CM ---
CM reviewed chart, patient seen discharging with mother. Home no needs.
Plan; home no needs.
--- NOTE | 2024-05-16 10:17 | W.DCSUMMARY ---
Addendum entered and electronically signed by Bishop Reyna MD 05/18/24 08:36:
Read, reviewed, and agree. See same day progress note for additional details. Time spent coordinating care, DC planning, review of DC plan of care with resident, transition of care, review of records in EMR, med rec, consults, notes, d/w
consultants, nursing, family.
Discussed the patient and mother that he needs to complete the workup as outpatient for his neurological condition. Also discussed that many tests are pending at discharge and he should follow-up with primary physician or neurology for the results
of that.
Original Note:
Discharge Summary
Discharge Data
Date of Admission: 05/14/24
Date of Discharge: 05/16/24
-
Pending Results: Yes
Hospital Course
Discharging Physician : Bishop Reyna MD; Kael Barraza MD
Disposition : Home
Primary care physician : Alayna Garcia
Principal Discharge diagnosis : B/L LE weakness, R>L ; concern for GBS, leukocytosis, rash on face
Chronic Discharge diagnosis : PTSD/anxiety, essential hypertension, BPH, B12 deficiency
Hospital Course : 38-year-old male complaining of receiving an influenza vaccine 3 days prior to coming to the hospital, he also reports he received a hepatitis A vaccine recently due to being demarco he states he also received Prevnar and
COVID-vaccine November 15, 2022 however he believes the girl gave it incorrectly and he got 1/8 of the dose. He reported receiving another Prevnar instead of getting a titer checked. He states at 9 PM on Saturday he ordered pizza he was sitting in
the kitchen eating it the next thing he knew he was standing at 2 AM in front of the stove with vomit on his shirt he states he was then lying on the ground completely flat on his back and luckily he had his cell phone to call his mother to help him
up. He does not remember a syncopal episode he denies drinking or using any drugs and states he did not take his evening dose of clonazepam 4 mg along with Xanax 6 mg and Lunesta 1 mg. He was admitted on 05/11/2024 and was started on IV Ig after
neuroconsult and extensive workup.
He received 3 doses of IVIG, he was transferred out of the ICU to med/surge floor Patient left AMA the next day.
Called patient to request him to come back to the hospital to complete the workup and IVIG infusions. After discussing information multiple times in great length he agreed to come back.
He completed the remaining 2 IVIG infusion to complete a total course of 5 days. His symptoms significantly improved however he still has dropfoot on the right. He remained adamant of going home today and stated if he is not discharged before 9 AM
he will leave AMA again. Neurology cleared him for discharge today. He was given PT/OT prescription. He was also instructed to follow-up with outpatient neurology as there are several tests which are still pending. He was also instructed to
follow-up with outpatient dermatology to evaluate the rash on the face. He was advised to follow-up with PCP within 1 week to update. He verified understanding.
Important imaging findings : All images and the previous admission/discharge summary chart when patient left AMA
Discharge Plan
-
Patient Disposition: Home (Routine Discharge)
Discharge Diagnosis/Procedures: B/L LE weakness, R>L; concern for GBS
Rash on face; unclear etiology
Condition: Fair
Diet: Regular
Activity: No restrictions and As tolerated
Additional Activity: Use assistance device as recommended by physical therapy
Driving Restrictions: Not until seen by your Dr
Blood Work: Routine outpatient labs per PCP. Repeat JOSE with titers as outpatient
Others Tests: Chest x-ray PA lateral view in 1 week. MRI of the pituitary gland recommended as outpatient. EMG and nerve conduction study of legs.
Other Services: PT and OT
Activity Restrictions/Additional Instructions:
Follow-up with your primary physician or psychiatrist to see if you can cut back on the doses of clonazepam and alprazolam.
Follow-up with a match up person for the rash.
Your neurology workup is not complete yet. You need further follow-up testing and follow-up with neurologist as outpatient as discussed.
Do not drive until cleared by neurology or occupational therapy.
Referrals:
Alayna Garcia MD [Family Provider] - in less than 1 week
Dana Acosta MD [Active] - in one to two weeks
Ghislaine Black MD [Consulting Staff] - in one to two weeks
Additional Discharge Medication Instructions: Several test including CSF studies, MS panel, Lyme disease panel pending.
Continue with outpatient workup with neurology.
Continue physical therapy outpatient; prescription provided
Prescriptions:
Continued
gabapentin 600 mg tablet
600 mg PO TID
minoxidil 2.5 mg tablet
2.5 mg PO QPM
cyanocobalamin (vitamin B-12) 1,000 mcg/mL solution
1,000 mcg IM MONTHLY
clonazepam 2 mg tablet
4 mg PO HS
Patient Comments:
05/11/24: per patient, takes full daily dose in the evening
hydrochlorothiazide 12.5 mg capsule
12.5 mg PO QPM
alprazolam 2 mg tablet
6 mg PO HS
Patient Comments:
05/11/24: per patient, takes full daily dose at bedtime
ergocalciferol (vitamin D2) 1,250 mcg (50,000 unit) capsule
2,500 mcg PO WEEKLY
finasteride [Propecia] 1 mg tablet
1 mg PO DAILY
dutasteride 0.5 mg capsule
0.5 mg PO DAILY
eszopiclone 1 mg tablet
1 mg PO HSPRN PRN (Reason: insomnia)
Discontinued
methylprednisolone 32 mg Tablet
32 mg PO .TAPER
Discharge Orders:
Discharge Patient (As Directed); Ordered 05/16/24
Ordered By: Bishop Reyna
Discharge Date and Time
Discharge Date/Time: 05/16/24 10:05
Print Language: CITIZEN [place]
[2024-05-19 01:57] LABS: Asialo-GM1 Antibody 49 IV (0-50); GD1a Antibody 30 IV (0-50); GD1b Antibodies 33 IV (0-50); GM1 Antibody 34 IV (0-50); GM2 Antibody 56 IV (0-50); GQ1b Antibodies 24 IV (0-50)
== END 2024-05-16 10:05 | disposition home or self-care (01) | DRG 96 ==
LOC: 4 WEST ACU 21:57
PROVIDERS: Hospitalist; ADMITTING PHYSICIAN Internal Medicine; ATTENDING PHYSICIAN Hospitalist; CONSULT PHYSICIAN Surgery; EMERGENCY PHYSICIAN Emergency Medicine; FAMILY PHYSICIAN Internal Medicine
PROC: 30233S1 Transfusion of Nonautologous Globulin into Peripheral Vein, Percutaneous Approach (ICD-10-PCS; 2024-05-15)
DX: G61.0 Guillain-Barre syndrome (principal); R53.1 Weakness; R21 Rash and other nonspecific skin eruption; F43.10 Post-traumatic stress disorder, unspecified; F41.1 Generalized anxiety disorder; I10 Essential (primary) hypertension; N40.0 Benign prostatic hyperplasia without lower urinary tract symptoms; E53.8 Deficiency of other specified B group vitamins; M21.371 Foot drop, right foot; Z53.29 Procedure and treatment not carried out because of patient's decision for other reasons; Z79.899 Other long term (current) drug therapy
CPT/HCPCS: 80048; 80053; 83516; 85025; 85027; 85652; 97163; 97167; 99285; J1569